=== PATIENT | female | born 1960 | race Caucasian/White ===

== ENCOUNTER → 2016-05-01 | Outpatient (REF) | payer OTHER ==
[~2016-05-01] MED LIST: /ESCI20TA PO; /MOXI40TA PO; /ONDA4TA OR; /PANT40TA PO; BISA10SU PR; BOTOX INJ; CETI10TA PO; CIPR500T89 PO; HYDROCODONE 7.5/500 OR; LORTTAB5 PO; MAXA5TAB10 OR; MYSO50TA PO; NORCOBULK PO; OMEP20CA3 OR; PRIL20CA PO; PROG100C PO; PSEU60TA PO; SIMV20TA2 PO; TYLE325T5 PO; VITAMIN D 2 OR; XANA0.5T PO; [UNRECOGNIZED DRUG - CODE] OR; [UNRECOGNIZED DRUG - CODE] PO; [UNRECOGNIZED DRUG - OTHER]; [UNRECOGNIZED DRUG - OTHER] OR; [UNRECOGNIZED DRUG - OTHER] OR
== END ==
LOC: M LAB REF 13:10
PROVIDERS: ATTEND Physician Assistant Medical
DX: Z12.4 Encounter for screening for malignant neoplasm of cervix (principal)

== ENCOUNTER → 2016-05-29 | Outpatient (REF) | payer OTHER ==
[2016-05-29 16:10] LABS: BASO % 0.5 % (0.0-1.0); EOS % 0.6 % (0.0-3.0); LARGE UNSTAINED CELL # 0.1 K/mm3 (0.0-0.4); LARGE UNSTAINED CELL % 1.5 % (0.0-4.0); LYMPH # 0.8 K/mm3 (1.5-4.5); LYMPH % 17.7 % (24.0-44.0); MEAN CORPUSCULAR HEMOGLOBIN 30.7 pg (27.0-33.0); MEAN CORPUSCULAR HGB CONC 33.8 g/dl (32.0-36.5); MEAN CORPUSCULAR VOLUME 90.9 fl (80.0-96.0); MONO # 0.3 K/mm3 (0.0-0.8); MONO % 6.9 % (0.0-5.0); NEUTROPHILS # 3.1 K/mm3 (1.8-7.7); NEUTROPHILS % 72.8 % (36.0-66.0); PLATELET COUNT, AUTOMATED 176 k/mm3 (150-450); WHITE BLOOD COUNT 4.2 K/mm3 (4.0-10.0)
[2016-05-29 16:44] LABS: ALBUMIN 3.8 GM/DL (3.2-5.2); ALBUMIN/GLOBULIN RATIO 1.52 (1.00-1.93); ALKALINE PHOSPHATASE 69 U/L (45-117); ALT/SGPT 75 U/L (12-78); ANION GAP 8 MEQ/L (8-16); AST/SGOT 46 U/L (15-37); BILIRUBIN,TOTAL 0.3 MG/DL (0.2-1.0); BLOOD UREA NITROGEN 16 MG/DL (7-18); CARBON DIOXIDE LEVEL 28 MEQ/L (21-32); CHLORIDE LEVEL 100 MEQ/L (98-107); CHOLESTEROL LEVEL 223 MG/DL (<200); CREATININE FOR GFR 0.93 MG/DL (0.55-1.02); FERRITIN 96 NG/ML (8-252); FREE T4 0.68 NG/DL (0.76-1.46); GLOMERULAR FILTRATION RATE > 60.0 (>51); GLUCOSE, FASTING 89 MG/DL (70-105); PERCENT SATURATION 40.1 % (13.2-37.4); POTASSIUM SERUM 4.8 MEQ/L (3.5-5.1); SODIUM LEVEL 136 MEQ/L (136-145); TOTAL IRON BINDING CAPACITY 237 UG/DL (250-450); TOTAL PROTEIN 6.3 GM/DL (6.4-8.2); TRIGLYCERIDES LEVEL 124 MG/DL (<150)
[2016-05-29 17:08] LABS: VITAMIN B12 LEVEL 909 PG/ML
[2016-05-29 17:09] LABS: FOLATE 10.8 NG/ML
[2016-05-31 12:07] LABS: PRETREATED FOLATE FOR RBCFOL 7.5 NG/ML
== END ==
LOC: M LABDRAW1 15:31
PROVIDERS: ATTEND Physician Assistant Medical
DX: E55.9 Vitamin D deficiency, unspecified (principal); R53.83 Other fatigue; Z98.84 Bariatric surgery status

== ENCOUNTER → 2016-10-10 | Outpatient (REF) | payer OTHER ==
[2016-10-10 18:29] LABS: FREE T4 0.69 NG/DL (0.76-1.46)
== END ==
LOC: M LABDRAW1 16:15
PROVIDERS: ATTEND Physician Assistant Medical
DX: E03.9 Hypothyroidism, unspecified (principal)

== ENCOUNTER → 2017-08-28 | Outpatient (REF) | payer OTHER ==
[2017-08-28 16:11] LABS: BASO % 0.2 % (0.0-1.0); EOS % 0.5 % (0.0-3.0); HEMATOCRIT 38.9 % (36.0-47.0); HEMOGLOBIN 12.9 g/dl (12.0-15.5); IMMATURE GRANULOCYTE % 0.2 % (0-3.0); LYMPH # 0.8 10^3/uL (1.5-4.5); LYMPH % 18.7 % (24.0-44.0); MEAN CORPUSCULAR HEMOGLOBIN 31.6 pg (27.0-33.0); MEAN CORPUSCULAR HGB CONC 33.2 g/dl (32.0-36.5); MEAN CORPUSCULAR VOLUME 95.3 fl (80.0-96.0); MONO # 0.4 10^3/uL (0.0-0.8); MONO % 9.2 % (0.0-5.0); NEUTROPHILS # 3.1 10^3/uL (1.8-7.7); NEUTROPHILS % 71.2 % (36.0-66.0); PLATELET COUNT, AUTOMATED 239 10^3/uL (150-450); RED BLOOD COUNT 4.08 10^6/uL (4.00-5.40); RED CELL DISTRIBUTION WIDTH 12.5 % (11.5-14.5); WHITE BLOOD COUNT 4.3 10^3/uL (4.0-10.0)
[2017-08-28 16:15] LABS: HEMATOCRIT 38.9 % (36.0-47.0)
[2017-08-28 16:21] LABS: TOTAL 25(OH) VITAMIN D 92.9 NG/ML (30.0-100.0)
[2017-08-28 16:22] LABS: FOLATE 19.7 NG/ML; VITAMIN B12 LEVEL 896 PG/ML
[2017-08-28 16:23] LABS: ALBUMIN 3.8 GM/DL (3.2-5.2); ALBUMIN/GLOBULIN RATIO 1.31 (1.00-1.93); ALKALINE PHOSPHATASE 73 U/L (45-117); ALT/SGPT 27 U/L (12-78); ANION GAP 9 MEQ/L (8-16); AST/SGOT 15 U/L (7-37); BILIRUBIN,TOTAL 0.4 MG/DL (0.2-1.0); BLOOD UREA NITROGEN 15 MG/DL (7-18); CALCIUM LEVEL 8.7 MG/DL (8.5-10.1); CARBON DIOXIDE LEVEL 25 MEQ/L (21-32); CHLORIDE LEVEL 100 MEQ/L (98-107); CHOLESTEROL LEVEL 242 MG/DL (<200); CHOLESTEROL RISK RATIO 2.781 (<5); CREATININE FOR GFR 1.09 MG/DL (0.55-1.30); FERRITIN 22 NG/ML (8-252); FREE T4 0.67 NG/DL (0.76-1.46); GLOMERULAR FILTRATION RATE 55.3 (>51); GLUCOSE, FASTING 117 MG/DL (70-100); HDL CHOLESTEROL 87 MG/DL (>40); IRON (FE) 116 UG/DL (50-170); NON-HDL-C 155 MG/DL; PERCENT SATURATION 40.7 % (13.2-45.0); SODIUM LEVEL 134 MEQ/L (136-145); TOTAL IRON BINDING CAPACITY 285 UG/DL (250-450); TOTAL PROTEIN 6.7 GM/DL (6.4-8.2); TRIGLYCERIDES LEVEL 165 MG/DL (<150)
[2017-08-29 12:54] LABS: PRETREATED FOLATE FOR RBCFOL 16.4 NG/ML; RBC FOLATE 885.3 NG/ML (280-791)
[2017-09-03 09:06] LABS: VITAMIN B1 LEVEL WHOLE BLOOD 134.9 nmol/L (66.5-200.0)
== END ==
LOC: M LAB REF 15:41
DX: Z98.84 Bariatric surgery status (principal)

== ENCOUNTER → 2019-02-11 | Outpatient (REF) | payer OTHER ==
[~2019-02-11] MED LIST changes: -/ESCI20TA PO; -/MOXI40TA PO; -/ONDA4TA OR; -/PANT40TA PO; +AVEL1TAB2 PO; +CATA0.1T PO; +CYMB60CA3 PO; +IBUP-1114 PO; +INDE1CAP6 PO; +LEXA1TAB2 PO; +MAXA10TA14 PO; +NP T30TA; +ONDA-1 OR; +OXYC1TAB23 PO; +PROT1TAB2 PO; +RISP1SS PO; +TIZA4CAP PO; +VITA50005; -[UNRECOGNIZED DRUG - CODE] PO
[2019-02-11 16:02] LABS: BASO % 0.3 % (0.0-1.0); EOS % 0.3 % (0.0-3.0); HEMATOCRIT 39.3 % (36.0-47.0); HEMOGLOBIN 12.9 g/dl (12.0-15.5); LYMPH # 0.8 10^3/uL (1.5-5.0); LYMPH % 12.5 % (24.0-44.0); MEAN CORPUSCULAR HEMOGLOBIN 36.5 pg (27.0-33.0); MEAN CORPUSCULAR HGB CONC 32.8 g/dl (32.0-36.5); MEAN CORPUSCULAR VOLUME 111.3 fl (80.0-96.0); MONO # 0.6 10^3/uL (0.0-0.8); MONO % 9.3 % (0.0-5.0); NEUTROPHILS # 5.1 10^3/uL (1.5-8.5); NEUTROPHILS % 77.1 % (36.0-66.0); PLATELET COUNT, AUTOMATED 182 10^3/uL (150-450); RED BLOOD COUNT 3.53 10^6/uL (4.00-5.40); WHITE BLOOD COUNT 6.7 10^3/uL (4.0-10.0)
[2019-02-11 16:17] LABS: ALBUMIN 3.3 GM/DL (3.2-5.2); BILIRUBIN,TOTAL 0.3 MG/DL (0.2-1.0); CALCIUM LEVEL 9.5 MG/DL (8.5-10.1); CREATININE FOR GFR 1.04 MG/DL (0.55-1.30); FREE T4 0.73 NG/DL (0.76-1.46); GLOMERULAR FILTRATION RATE 58.1 (>51); PERCENT SATURATION 26.8 % (13.2-45.0); POTASSIUM SERUM 3.7 MEQ/L (3.5-5.1); THYROID STIMULATING HORMONE 4.88 uIU/ML (0.358-3.740); TOTAL PROTEIN 6.4 GM/DL (6.4-8.2)
[2019-02-11 16:18] LABS: TOTAL 25(OH) VITAMIN D 36.6 NG/ML (30.0-100.0)
[2019-02-11 16:19] LABS: FOLATE 12.9 NG/ML
== END ==
LOC: M LABDRAW1 15:31
PROVIDERS: ATTEND Physician Assistant
DX: G25.0 Essential tremor (principal); E03.9 Hypothyroidism, unspecified; Z98.84 Bariatric surgery status

== ENCOUNTER 2019-03-01 12:47 | Inpatient (IN) | payer OTHER ==
[~2019-03-01] VITALS: Ht 157.5 cm; Wt 104.5 kg
[2019-03-01] MEDS ORDERED: NS 500 ML IV ONE (13:45)
[2019-03-01 13:52] LABS: BASO % 0.2 % (0.0-1.0); EOS # 0.1 10^3/uL (0.0-0.5); EOS % 0.3 % (0.0-3.0); HEMATOCRIT 38.2 % (36.0-47.0); HEMOGLOBIN 13.9 g/dl (12.0-15.5); LYMPH # 0.6 10^3/uL (1.5-5.0); LYMPH % 3.7 % (24.0-44.0); MEAN CORPUSCULAR HEMOGLOBIN 38.1 pg (27.0-33.0); MEAN CORPUSCULAR HGB CONC 36.4 g/dl (32.0-36.5); MEAN CORPUSCULAR VOLUME 104.7 fl (80.0-96.0); MONO # 1.4 10^3/uL (0.0-0.8); MONO % 8.3 % (0.0-5.0); NEUTROPHILS # 14.4 10^3/uL (1.5-8.5); PLATELET COUNT, AUTOMATED 351 10^3/uL (150-450); RED BLOOD COUNT 3.65 10^6/uL (4.00-5.40); WHITE BLOOD COUNT 16.5 10^3/uL (4.0-10.0)
[2019-03-01 14:16] LABS: HCG, SERUM QUALITATIVE NEGATIVE (NEGATIVE)
[2019-03-01 14:18] LABS: INFLUENZA A AMPLIFICATION NEGATIVE (NEGATIVE); INFLUENZA B AMPLIFICATION NEGATIVE (NEGATIVE)
--- NOTE | 2019-03-01 14:29 | REP ---
Chest AP and lateral views with the patient sitting: Comparison is 12/23/2012. There is an incomplete inspiratory effort. The visualized lung park are clear. The cardiac size is normal. The hector, mediastinum, skeletal structures are unremarkable. Impression: Incomplete inspiratory effort, otherwise, negative AP and lateral chest. Electronically Signed by Dylan Tate MD 03/01/2019 02:21 P
[2019-03-01 14:33] LABS: ALBUMIN 3.7 GM/DL (3.2-5.2); ALT/SGPT 30 U/L (12-78); BILIRUBIN,DIRECT 0.2 MG/DL (0.0-0.2); BILIRUBIN,TOTAL 0.5 MG/DL (0.2-1.0); BLOOD UREA NITROGEN 11 MG/DL (7-18); CALCIUM LEVEL 10.1 MG/DL (8.5-10.1); CARBON DIOXIDE LEVEL 17 MEQ/L (21-32); CHLORIDE LEVEL 94 MEQ/L (98-107); CPK CREATINE PHOSPHOKINASE 2055 U/L (26-192); CREATININE FOR GFR 1.33 MG/DL (0.55-1.30); ETHYL ALCOHOL (ETHANOL) < 0.003 % (0.000-0.010); GLOMERULAR FILTRATION RATE 43.8 (>51); GLUCOSE, FASTING 141 MG/DL (70-100); POTASSIUM SERUM 4.1 MEQ/L (3.5-5.1); SALICYLATE LEVEL < 1.7 MG/DL (5.0-30.0); SODIUM LEVEL 127 MEQ/L (136-145); TOTAL PROTEIN 6.8 GM/DL (6.4-8.2)
--- NOTE | 2019-03-01 14:36 | REP ---
CT brain without contrast: History: Trauma. Comparison CT study September 02, 2015. Findings: Digital preliminary clothes presser radiographs are unremarkable. The bony calvarium is intact. Vascular calcification is noted in the internal carotid arteries bilaterally. There is a radiopaque band around the ocular globe on the left unchanged. Lateral, third, and fourth ventricles are normal in size and position. Erazo-white differentiation pattern is intact. There is no evidence of intracranial hemorrhage. No infarct, mass, extra-axial fluid collection, or midline shift is seen. No change from comparison study. Impression: Vascular calcification. No acute intracranial abnormality. Electronically Signed by Harshal Zuniga MD 03/01/2019 07:50 P
--- NOTE | 2019-03-01 14:37 | REP ---
CT study of the cervical spine without contrast: History: Trauma. Technique: Helical scanning is acquired and overlapping 2 mm high resolution axial images were generated and reviewed at bone and soft tissue window settings. Coronal and sagittal multiplanar re-formations images are generated. CT findings: There is no evidence of cervical spine element fracture. No skull base fracture is seen. Cervical vertebral body heights are preserved. Alignment is normal. Facet joints are normally aligned bilaterally at each cervical level on multiplanar re-formations images. There is no evidence of intraspinal or paraspinal hematoma. No extra vertebral abnormality is seen. There are fairly advanced degenerative disc and osteoarthritic facet changes diffusely in the cervical spine. There is multilevel neural foraminal narrowing. There is some straightening. Impression: Degenerative spondylosis changes moderate and diffuse. No significant change from September 02, 2015. Otherwise negative CT study of the cervical spine without contrast. No fracture seen. Electronically Signed by Harshal Zuniga MD 03/01/2019 07:50 P
[2019-03-01] MEDS ORDERED: DULO-34 PO (15:04)
[2019-03-01] MEDS ORDERED: PRIM50TA6 PO (15:04)
[2019-03-01] MEDS ORDERED: NP T30TA PO (15:04)
[2019-03-01] MEDS ORDERED: VITA50005 PO (15:04)
[2019-03-01] MEDS ORDERED: CALC-263 PO (15:04)
[2019-03-01] MEDS ORDERED: RISP2TAB3 PO (15:04)
[2019-03-01] MEDS ORDERED: OMEP-218 PO (15:04)
[2019-03-01] MEDS ORDERED: RIZA10TA2 PO (15:04)
[2019-03-01] MEDS ORDERED: MECL1TAB31 PO (15:04)
[2019-03-01] MEDS ORDERED: NP T15TA PO (15:04)
[2019-03-01] MEDS ORDERED: CLON1TAB8 PO (15:04)
[2019-03-01] MEDS: NS 1,000 ML IV SCH ×2 (15:20→22:07)
[2019-03-01 16:18] LABS: AMPHETAMINES LEVEL URINE NEGATIVE (NEGATIVE); BARBITURATES URINE POSITIVE (NEGATIVE); BENZODIAZEPINES URINE POSITIVE (NEGATIVE); CANNABINOIDS URINE NEGATIVE (NEGATIVE); COCAINE METABOLITE URINE NEGATIVE (NEGATIVE); METHADONE URINE NEGATIVE (NEGATIVE); OPIATES URINE NEGATIVE (NEGATIVE); PHENCYCLIDINE URINE NEGATIVE (NEGATIVE)
[2019-03-01] MEDS ORDERED: cefTRIAXone SOD 1 GM in D5W MINI-BAG PLUS 50 ML IV ONE (16:30)
[2019-03-01] MEDS ORDERED: MECLIZINE 25 MG TABLET PO PRN (18:15)
--- NOTE | 2019-03-01 18:15 | HPEPDOC ---
[facility] Medical History & Physical Date of Admission Mar 01, 2019 Date of Service: Mar 01, 2019 History and Physical CHIEF COMPLAINT: AMS HISTORY OF PRESENT ILLNESS: Patient is 58F with PMH recurrent UTIs, Anxiety/depression, resting tremor, Migraine, HTN brought in by family for worsening weakness and recurrent falls. Reported that patient has been unsteady for the past few months and appear to have worsened with progressive weakness. She was reportedly supposed to be going to see a neurologist for worsen tremors and unsteady gait but has not started doing that yet. In ER, patient was AAOX3 but does have difficulty remembering and expressing some thoughts and appear to be tremulous, although reportedly is normal for her. She stated that her legs are weak as well as having chronic back pain but otherwise denies any other symptoms including chest pain, SOB, fever, chills, nausea, vomiting, dizziness, visual changes. She reportedly has been taking excessive NiQuil to have help with sleep. Reportedly about 2 bottles/day? Patient was found to have elevated CK, Utox + benzos and barbituates, and UA suggestive of UTI. PAST MEDICAL HISTORY: Refer to [facility] PAST SURGICAL HISTORY: Gastric bypass Hysterectomy Cholecystectomy carpal tunnel surgery SOCIAL HISTORY: Denies tobacco, alcohol or illicit drug use. FAMILY HISTORY: Mother- kidney cancer Father- COPD ALLERGIES: Please see below. REVIEW OF SYSTEMS: 10 point review of system negative except as stated in [facility] HOME MEDICATIONS: Please see below. PHYSICAL EXAMINATION: General: tremulous, slow in speech and mentation but follows commands fully Eyes: Normal sclera, EOMI HENT: Atraumatic Cardiovascular: Normal rate Pulmonary: Clear to auscultation b/l, no wheezing GI: Soft, nontender, nondistended Skin: Warm and dry Neuro: CN grossly intact. Generalized weakness worse in LE extremities equally. 4/5 in b/l UE. 1-2/5 in b/l LE. Sensations intact throughout. Psych: oriented x 3 LABORATORY DATA: See below. IMAGING: Head CT- Vascular calcification. No acute intracranial abnormality. CXR- Incomplete inspiratory effort, otherwise, negative AP and lateral chest. Cervical spine CT- Degenerative spondylosis changes moderate and diffuse. No significant change from September 02, 2015. Otherwise negative CT study of the cervical spine without contrast. No fracture seen. MICROBIOLOGY: Please see below. ASSESSMENT AND PLAN: 1. AMS/LE weakness - Likely multifactorial including: UTI vs. worsening of tremors/parkinson/neurological disorder vs. excess drug intake Niquil - Utox + barbituates and benzos. - Treat for UTI. c/w PT and OT. - CT head negative for acute intracranial abnormalities. - consider neurology consultation if does not improve after UTI treatment. 2. UTI - c/w Rocephin. - f/u Urine culture and de-escalate antibiotics as needed. - hx recurrent UTI's. Used to be on chronic antibiotics but had stopped for a period of time as she has not had it again in awhile. 3. Anxiety/Depression - resume home meds. 4. HTN? - BP controlled. No medication listed. - Will watch for now. 5. Hypothyroid - resume home med DVT ppx: Lovenox Code status: Full code Vital Signs Vital Signs Date Time Temp Pulse Resp B/P (MAP) Pulse Ox O2 Delivery O2 Flow Rate FiO2 03/01/19 17:01 107 98 Room Air 03/01/19 16:16 20 117/56 (76) 03/01/19 13:42 98.1 Laboratory Data Labs 24H Laboratory Tests 2 03/01/19 13:15: Bedside Glucose (Misc Panel) 165H 03/01/19 13:32: Immature Granulocyte % (Auto) 0.5, Neutrophils (%) (Auto) 87.0H, Lymphocytes (%) (Auto) 3.7L, Monocytes (%) (Auto) 8.3H, Eosinophils (%) (Auto) 0.3, Basophils (%) (Auto) 0.2, Neutrophils # (Auto) 14.4H, Lymphocytes # (Auto) 0.6L, Monocytes # (Auto) 1.4H, Eosinophils # (Auto) 0.1, Basophils # (Auto) 0.0, Nucleated Red Blood Cells % (auto) 0.0, Anion Gap 16, Glomerular Filtration Rate 43.8L, Calcium Level 10.1, Total Bilirubin 0.5, Direct Bilirubin 0.2, Aspartate Amino Transf (AST/SGOT) 50H, Alanine Aminotransferase (ALT/SGPT) 30, Alkaline Phosphatase 87, Total Creatine Kinase 2055H, Total Protein 6.8, Albumin 3.7, Albumin/Globulin Ratio 1.19, Thyroid Stimulating Hormone (TSH) 1.330, Human Chorionic Gonadotropin, Qual NEGATIVE, Salicylates Level < 1.7L, Acetaminophen Level 2.0L, Ethyl Alcohol Level < 0.003, Influenza Type A (RT-PCR) NEGATIVE, Influenza Type B (RT-PCR) NEGATIVE 03/01/19 14:38: Urine Color YELLOW, Urine Appearance HAZY, Urine pH 5.0, Urine Specific [place] 1.008, Urine Protein NEGATIVE, Urine Glucose (UA) NEGATIVE, Urine Ketones TRACEH, Urine Blood 3+H, Urine Nitrite POSITIVEH, Urine Bilirubin NEGATIVE, Urine Urobilinogen 0.2, Urine Leukocyte Esterase NEGATIVE, Urine WBC (Auto) 2, Urine RBC (Auto) 2, Urine Hyaline Casts (Auto) 0, Urine Bacteria (Auto) 2+H, Urine Squamous Epithelial Cells 1, Urine Mucus (Auto) SMALL, Urine Sperm (Auto) , Urine Opiates Screen NEGATIVE, Urine Methadone Screen NEGATIVE, Urine Barbiturates Screen POSITIVEH, Urine Phencyclidine Screen NEGATIVE, Urine Amphetamines Screen NEGATIVE, Urine Benzodiazepines Screen POSITIVEH, Urine Cocaine Metabolite Screen NEGATIVE, Urine Cannabinoids Screen NEGATIVE CBC/BMP Laboratory Tests 03/01/19 13:32 Microbiology Microbiology 03/01/19 Urine Culture, Received Pending Home Medications Scheduled Calcium Carb/Vitamin D3/Vit K1 (Citracal Soft Chew) 1 Each Tab.chew, 2 EACH PO BID Duloxetine HCl (Duloxetine HCl) 40 Mg Capsule.dr, 80 MG PO BID Ergocalciferol (Vitamin D2) (Vitamin D2) 50,000 Units Cap, 50,000 UNIT PO QWEEK SATURDAYS Omeprazole (Omeprazole) 20 Mg Capsule.dr, 20 MG PO DAILY Primidone (Primidone) 50 Mg Tablet, 200 MG PO BID Risperidone (Risperidone) 2 Mg Tablet, 3 MG PO BID Thyroid,Pork (Radiology Technologist Thyroid) 15 Mg Tablet, 15 MG PO DAILY TAKE WITH 30MG TAB FOR TOTAL OF 45MG DAILY Thyroid,Pork (Radiology Technologist Thyroid) 30 Mg Tablet, 30 MG PO DAILY TAKE WITH 15MG TAB FOR TOTAL DOSE OF 45MG DAILY Scheduled PRN Clonazepam (Clonazepam) 1 Mg Tablet, 1 MG PO TID PRN for ANXIETY MAY TAKE TWO TABS IF NEEDED Meclizine HCl (Meclizine HCl) 25 Mg Tablet, 25 MG PO Q8H PRN for DIZZINESS TAKES 1/2 TO 1 TAB IF NEEDED Rizatriptan Benzoate (Rizatriptan) 10 Mg Tablet, 10 MG PO BID PRN for HEADACHE Allergies Coded Allergies: No Known Allergies (Unverified , 09/15/17) A-FIB/CHADSVASC A-FIB History Current/History of A-Fib/PAF?: No KANDY VIZCARRA MD Mar 01, 2019 18:15
[2019-03-01] MEDS ORDERED: PILL CUTTER 1 EACH XX PRN (18:45)
[2019-03-01 20:00] VITALS: BP 121/56
[2019-03-01] MEDS: traMADol 50 MG TAB PO PRN (20:25)
[2019-03-01] MEDS: risperiDONE 2 MG TAB PO SCH (22:06)
[2019-03-01] MEDS: PRIMIDONE 50 MG TAB PO SCH (22:07)
[2019-03-01] MEDS: DULoxetine 20 MG CAP (CYMBALTA) PO SCH (22:07)
[2019-03-02] MEDS: clonazePAM 1 MG TAB PO PRN (00:14)
[2019-03-02] MEDS: traMADol 50 MG TAB PO PRN ×3 (06:43→18:54)
[2019-03-02 06:51] VITALS: BP 109/58
[2019-03-02 07:18] LABS: HEMATOCRIT 34.4 % (36.0-47.0); MEAN CORPUSCULAR VOLUME 108.9 fl (80.0-96.0); RED BLOOD COUNT 3.16 10^6/uL (4.00-5.40); WHITE BLOOD COUNT 7.3 10^3/uL (4.0-10.0)
[2019-03-02 07:21] LABS: HEMOGLOBIN 11.7 g/dl (12.0-15.5)
[2019-03-02 07:22] LABS: PLATELET COUNT, AUTOMATED 193 10^3/uL (150-450)
[2019-03-02 07:51] LABS: BLOOD UREA NITROGEN 10 MG/DL (7-18); CALCIUM LEVEL 8.2 MG/DL (8.5-10.1); CARBON DIOXIDE LEVEL 20 MEQ/L (21-32); CHLORIDE LEVEL 105 MEQ/L (98-107); CREATININE FOR GFR 0.93 MG/DL (0.55-1.30); GLOMERULAR FILTRATION RATE > 60.0 (>51); GLUCOSE, FASTING 81 MG/DL (70-100); POTASSIUM SERUM 3.2 MEQ/L (3.5-5.1); SODIUM LEVEL 136 MEQ/L (136-145)
[2019-03-02] MEDS: PRIMIDONE 50 MG TAB PO SCH ×2 (08:23→20:07)
[2019-03-02] MEDS: OMEPRAZOLE 20 MG CAP PO SCH (08:23)
[2019-03-02] MEDS: DULoxetine 20 MG CAP (CYMBALTA) PO SCH ×2 (08:23→20:06)
[2019-03-02] MEDS: risperiDONE 2 MG TAB PO SCH (08:23)
[2019-03-02] MEDS: ENOXAPARIN 40 MG/0.4 ML SYRINGE (J1650) SC SCH (08:24)
[2019-03-02] MEDS: THYROID 30 MG TAB PO SCH (08:24)
[2019-03-02] MEDS ORDERED: THYROID 30 MG TAB PO SCH (09:00)
[2019-03-02] MEDS: NS 1,000 ML IV SCH (09:11)
[2019-03-02 10:05] VITALS: BP 150/54
[2019-03-02 14:00] VITALS: BP 113/60
[2019-03-02] MEDS ORDERED: POTASSIUM CHLORIDE 10 MEQ SR TABLET PO ONE (14:00)
--- NOTE | 2019-03-02 15:47 | IPNPDOC ---
Text Note Date of Service The patient was seen on 03/02/19. NOTE SUBJECTIVE: Feels very weak and says her speech is different. No fever or chi lls, no dysuria no frequency of urination. Denies any chest pain. But does say gets easily winded. PHYSICAL EXAMINATION: General: tremulous, slow in speech and mentation but follows commands fully, flat affect, some release reflexes. Eyes: Normal sclera, EOMI HENT: Atraumatic Cardiovascular: Normal rate Pulmonary: Clear to auscultation b/l, no wheezing GI: Soft, nontender, nondistended Skin: Warm and dry Neuro: CN grossly intact. Generalized weakness worse in LE extremities equally. 4/5 in b/l UE. 1-2/5 in b/l LE. Sensations intact throughout. Psych: oriented x 3 LABORATORY DATA: See below. IMAGING: Head CT- Vascular calcification. No acute intracranial abnormality. CXR- Incomplete inspiratory effort, otherwise, negative AP and lateral chest. Cervical spine CT- Degenerative spondylosis changes moderate and diffuse. No significant change from September 02, 2015. Otherwise negative CT study of the cervical spine without contrast. No fracture seen. MICROBIOLOGY: Please see below. ASSESSMENT AND PLAN: Patient is 58F with PMH gastric bypass surgery, recurrent UTIs, Anxiety/depression, Essential tremors , Migraine, HTN headaches, dizziness used to get botox injections brought in by family for worsening weakness and recurrent falls. Worsening over the past one year all well as change in speech, disbalance and difficulty in ambulation. Reported that patient has been unsteady for the past few months and appear to have worsened with progressive weakness. She also says that she has difficulty in remembering things. This time she came in after a fall. She reportedly has been taking excessive NiQuil to have help with sleep. Reportedly about 2 bottles/day? Weakness and falls. no focal deficits worsening of tremors/parkinson/neurological disorder will consult neurology Dr SAEED. SHe had seen Dr Saeed 6 years ago. PT and OT Encephalopathy with Possible? mild cognitive impairment could be due to medications, she is on benzos, takes nyquil. now seems to have resolved. UTI I do not htink she has UTI . there are only 2 cells in the UA will stop ceftriaxone Lasix prn for fluid overload. Anxiety/Depression resume home meds. On clozazepam, resperidone, cymbalta H/o HTN BP controlled without any meds. Hypothyroid resume home med Migraine continue home meds Vertigo on meclizine DVT ppx: Lovenox Code status: Full code VS,Fishbone, I+O VS, Fishbone, I+O Laboratory Tests 03/02/19 06:56 Vital Signs Date Time Temp Pulse Resp B/P (MAP) Pulse Ox O2 Delivery O2 Flow Rate FiO2 03/02/19 14:00 98.0 92 18 113/60 (77) 97 Room Air I&O- Last 24 Hours up to 6 AM 03/02/19 06:00 Intake Total 600 ml Output Total 850 ml Balance -250 ml SHAVONNE GARDINER MD Mar 02, 2019 15:47
[2019-03-02] MEDS ORDERED: cefTRIAXone SOD 1 GM in D5W MINI-BAG PLUS 50 ML IV SCH (16:00)
[2019-03-02 20:00] VITALS: BP 102/56
[2019-03-02] MEDS: risperiDONE 3 MG TAB PO SCH (20:06)
--- NOTE | 2019-03-02 20:31 | ECGEPIP ---
[facility] - ED Test Date: 2019-03-01 Pat Name: ORTEGA AVENDAÑO Department: Room: - Gender: Female Alternative Medicine Practitioner: sonu : 1960 Requested By: Eddie Canada Order Number: [id number] Reading MD: Eddie Thornton Measurements Intervals [place] Rate: 127 P: 58 LA: 121 QRS: 24 QRSD: 86 T: 3 QT: 288 QTc: 419 Interpretive Statements SINUS TACHYCARDIA BASELINE ARTIFACT AFFECTS INTERPRETATION Electronically Signed on 03-02-2019 20:31:17 EST by Eddie Thornton
--- NOTE | 2019-03-02 22:56 | REPVR ---
PROCEDURE INFORMATION: Exam: MR Thoracic Spine Without Contrast Exam date and time: 03/02/2019 10:42 PM Age: 58 years old Clinical indication: Weakness; Additional info: Gait difficulty and ataxia TECHNIQUE: Imaging protocol: Multiplanar magnetic resonance images of the thoracic spine without intravenous contrast. COMPARISON: No relevant prior studies available. FINDINGS: Vertebrae: Degenerative spondylosis in the cervical spine. Discogenic and endplate degenerative changes. No fracture or malalignment. Spinal cord: Multiple short-segment longitudinal foci of abnormal T2 hyperintense cord signal are seen from T6 to T8 and also at T10-11, best appreciated on the sagittal STIR sequence. No mass, syrinx, or myelomalacia. T1-T2: Disc desiccation with small posterior disc bulge causing mild spinal stenosis. T2-T3: Disc desiccation with small posterior disc bulge causing mild spinal stenosis. T3-T4: No significant disc disease. No significant spinal stenosis. T4-T5: Disc degeneration with small posterior disc bulge. T5-T6: Disc degeneration with small posterior disc bulge. T6-T7: Disc degeneration with small posterior disc bulge. T7-T8: Mild disc degeneration without spinal stenosis. T8-T9: Disc degeneration with small left parasagittal disc bulge. No cord compression. T9-T10: Disc desiccation with small posterior disc bulge causing mild spinal stenosis. T10-T11: Disc degeneration with small posterior disc bulge. T11-T12: No significant disc disease. No significant spinal stenosis. Soft tissues: Unremarkable. Other findings: The exam is degraded by patient motion artifact. IMPRESSION: 1. Several foci of abnormal cord signal is concerning for demyelination such as multiple sclerosis. Other etiologies such as transverse myelitis or neoplasm are less likely. Consider follow-up contrast-enhanced spinal MRI and imaging of the remainder of the neuraxis. 2. Degenerative spondylosis as above. Electronically signed by: Vinh Fraser On 03/02/2019 22:55:49 PM
--- NOTE | 2019-03-02 23:01 | REPVR ---
PROCEDURE INFORMATION: Exam: MR Lumbar Spine Without Contrast. Exam date and time: 03/02/2019 10:42 PM Age: 58 years old Clinical indication: Lumbago and weakness; Additional info: Gait difficulty and ataxia TECHNIQUE: Imaging protocol: Multiplanar magnetic resonance images of the lumbar spine without intravenous contrast. COMPARISON: No relevant prior studies available. FINDINGS: Vertebrae: Grade 1 retrolisthesis throughout the lumbar spine. No compression fracture. Multilevel endplate degenerative changes. Incidental hemangioma in the L1 vertebral body. Spinal cord: Conus medullaris terminates in normal position at T12-L1 and is unremarkable. L1-L2: Disc degeneration with loss of disc height. Facet DJD and hypertrophy. No disc herniation or spinal stenosis. Mild bilateral foraminal stenosis. L2-L3: Disc degeneration with loss of disc height along with facet DJD and hypertrophy causing moderate central spinal canal stenosis with mass effect on the thecal sac. Severe right foraminal stenosis and mild left foraminal stenosis. L3-L4: Disc degeneration with loss of disc height along with facet DJD and hypertrophy causing severe central spinal canal stenosis with mass effect on the thecal sac. L4-L5: Disc degeneration with loss of disc height and broad-based posterior disc bulge causing moderate central spinal canal stenosis and lateral recess narrowing. Facet DJD and hypertrophy with moderate to severe foraminal stenosis, worse on the left. L5-S1: Disc degeneration with loss of disc height and broad-based posterior disc bulge with facet DJD and hypertrophy causing left greater than right lateral recess stenosis and mild central spinal stenosis. Severe bilateral foraminal stenosis with exiting nerve root compression. Soft tissues: Unremarkable. IMPRESSION: 1. Advanced degenerative spondylosis as above with moderate to severe multilevel central spinal canal stenosis. 2. Multilevel bilateral foraminal stenoses. Electronically signed by: Vinh Fraser On 03/02/2019 23:01:06 PM
[2019-03-02] MEDS: RIZATRIPTAN BENZOATE 10 MG TAB PO PRN (23:11)
[2019-03-03 06:00] VITALS: BP 123/66
[2019-03-03 06:56] LABS: HEMATOCRIT 31.1 % (36.0-47.0); HEMOGLOBIN 10.4 g/dl (12.0-15.5); MEAN CORPUSCULAR HEMOGLOBIN 37.4 pg (27.0-33.0); MEAN CORPUSCULAR HGB CONC 33.4 g/dl (32.0-36.5); MEAN CORPUSCULAR VOLUME 111.9 fl (80.0-96.0); PLATELET COUNT, AUTOMATED 165 10^3/uL (150-450); RED BLOOD COUNT 2.78 10^6/uL (4.00-5.40); WHITE BLOOD COUNT 5.7 10^3/uL (4.0-10.0)
--- NOTE | 2019-03-03 07:03 | CR ---
DATE OF CONSULTATION: 03/02/2019 REFERRING PHYSICIAN: Dr. Samina Sharma REASON FOR CONSULTATION: Difficulty walking. HISTORY OF PRESENT ILLNESS: Jossy Michel is a 58-year-old woman with history of tremor for 10 years. Her tremor has been getting worse over the last 1 year. The patient has noted increased difficulty with balance and unsteadiness while walking over the last couple of weeks. Her problems have been particularly worse over last 1 week and she has fallen four times. She was able to walk independently before. Her had to get a walker, but the patient did not use it and fell several times and ended up in the hospital. She ran out of her clonazepam for 10 days around 2018. She denies any other changes in her medications. She denies any other illness. She has history of chronic neck and back pain. Her neck and back pain are 6/10 in intensity. She feels weakness in her legs. She denies any numbness or tingling in her legs. She denies urinary incontinence or loss of consciousness. She feels her memory is terrible. She forgets everything. She briefly saw us in 2012 for her migraines and vertigo, but did not want to take any medications. She was getting Botox at that time and planned to continue Botox, but later stopped getting Botox as well. She currently denies any dizziness or vertigo. She feels off balance. DIAGNOSTIC STUDIES: CT scan of head showed vascular calcifications without acute disease. CT scan of cervical spine showed degenerative disk disease and mild spondylosis which was stable compared to her scan in 2016. CK was 2055 with urine toxicology screen showing positive barbiturates and benzodiazepines. Serum sodium was 136 and hemoglobin was 11.7. PAST MEDICAL HISTORY: Anxiety, depression, tremor, migraines, hypertension, gastric bypass, hysterectomy, cholecystectomy, carpal tunnel surgery. SOCIAL HISTORY: She denies smoking, alcohol or illicit drugs. FAMILY HISTORY: Father had chronic obstructive pulmonary disease (COPD) and mother had kidney cancer. REVIEW OF SYSTEMS: All systems were reviewed and found to be noncontributory except as mentioned in history of present illness. 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 ALLERGIES: None. PHYSICAL EXAMINATION: Temperature 98, pulse 92, respiratory rate 18, blood pressure 113/60, 97% saturation on room air. Heart: Regular rate and rhythm. Lungs: Clear to auscultation. Abdomen: Soft, nontender, nondistended. No pedal edema. No musculoskeletal abnormalities. No rash. No signs of meningeal irritation. The patient is awake, alert, oriented to month, year, name of president, city, state, country, and the name of hospital. She was unable to tell me exact date. She was able to tell me the day of week. Speech is normal with normal comprehension, repetition and expression. Extraocular muscles are intact. No facial weakness. Tongue and uvula are midline. Visual park are full to confrontation. There is no nystagmus. 5/5 strength in both arms. Strength in her left hip flexor is 2/5 and right hip flexor 3/5. Bilateral quadriceps strength was 4+/5. Tibialis anterior and gastrocnemius muscles were 5-/5. Deep tendon flexes were 2+ in arms, trace at knees and absent at ankles. Her gait is unsteady. She used a walker and needed assistance while getting out of bed and walking. Her gait was mildly shuffling. Normal sensation throughout. No dysmetria. [place]-in-ahxl testing is normal. ASSESSMENT: 1. Multifactorial gait difficulty. 2. Rule out transverse myelitis and lumbosacral spinal stenosis. 3. Neuroleptic/risperidone induced Parkinsonism. 4. Chronic neck and back. 5. Chronic migraines. 6. Urinary tract infection. PLAN: 1. MRI lumbosacral and thoracic spine. 2. Check vitamin B12, vitamin B1, serum copper, etc. 3. The patient is being treated for urinary tract infection. 4. Physical and occupational therapy and further treatment after above studies are available. 5. Follow with our office in 2-4 weeks after hospital discharge and rehabilitation.
[2019-03-03 07:24] LABS: BLOOD UREA NITROGEN 10 MG/DL (7-18); CALCIUM LEVEL 8.6 MG/DL (8.5-10.1); CARBON DIOXIDE LEVEL 20 MEQ/L (21-32); CHLORIDE LEVEL 108 MEQ/L (98-107); CREATININE FOR GFR 0.72 MG/DL (0.55-1.30); GLOMERULAR FILTRATION RATE > 60.0 (>51); GLUCOSE, FASTING 99 MG/DL (70-100); POTASSIUM SERUM 3.7 MEQ/L (3.5-5.1); SODIUM LEVEL 137 MEQ/L (136-145)
[2019-03-03 07:27] LABS: TOTAL PROTEIN 5.2 GM/DL (6.4-8.2)
[2019-03-03] MEDS: ENOXAPARIN 40 MG/0.4 ML SYRINGE (J1650) SC SCH (09:37)
[2019-03-03] MEDS: THYROID 30 MG TAB PO SCH (09:37)
[2019-03-03] MEDS: risperiDONE 3 MG TAB PO SCH ×2 (09:38→21:05)
[2019-03-03] MEDS: methylPREDNISolone 1,000 MG, VIAL MATE ADAPTER 1 EACH in D5W 250 ML IV SCH (09:39)
[2019-03-03] MEDS: OMEPRAZOLE 20 MG CAP PO SCH (09:39)
[2019-03-03] MEDS: PRIMIDONE 50 MG TAB PO SCH ×2 (09:39→21:04)
[2019-03-03] MEDS: DULoxetine 20 MG CAP (CYMBALTA) PO SCH ×2 (09:39→21:04)
[2019-03-03 10:36] LABS: VITAMIN B12 LEVEL 1983 PG/ML (247-911)
[2019-03-03] MEDS ORDERED: PROHANCE 279.3MG/ML 15ML VIAL (A9576) As Ordered ONE (12:14)
[2019-03-03] MEDS ORDERED: PROHANCE 279.3MG/ML 5ML VIAL (A9576) As Ordered ONE (12:14)
--- NOTE | 2019-03-03 12:28 | IPNPDOC ---
Text Note Date of Service The patient was seen on 03/03/19. NOTE SUBJECTIVE: No new complaints this morning. getting solumedrol. Weakness and speech problem unchanged. PHYSICAL EXAMINATION: General: tremulous, slow in speech and mentation but follows commands fully, flat affect, some release reflexes. Eyes: Normal sclera, EOMI, no nystagmus. HENT: Atraumatic Cardiovascular: Normal rate Pulmonary: Clear to auscultation b/l, no wheezing GI: Soft, nontender, nondistended Skin: Warm and dry Neuro: CN grossly intact. Generalized weakness worse in LE extremities equally. 5/5 in b/l UE. 4/5 in b/l LE. Sensations intact throughout. DTRs are decreased in the lower extremities. Psych: oriented x 3 LABORATORY DATA: See below. IMAGING: Head CT- Vascular calcification. No acute intracranial abnormality. CXR- Incomplete inspiratory effort, otherwise, negative AP and lateral chest. Cervical spine CT- Degenerative spondylosis changes moderate and diffuse. No significant change from September 02, 2015. Otherwise negative CT study of the cervical spine without contrast. No fracture seen. MRI Thoracic Several foci of abnormal cord signal is concerning for demyelination such as multiple sclerosis. Other etiologies such as transverse myelitis or neoplasm are less likely MRi lumber 1. Advanced degenerative spondylosis as above with moderate to severe multilevel central spinal canal stenosis. 2. Multilevel bilateral foraminal stenoses. MICROBIOLOGY: Please see below. ASSESSMENT AND PLAN: Patient is 58F with PMH gastric bypass surgery, recurrent UTIs, Anxiety/depression, Essential tremors , Migraine, HTN headaches, dizziness used to get botox injections brought in by family for worsening weakness and recurrent falls. Worsening over the past one year all well as change in speech, disbalance and difficulty in ambulation. Reported that patient has been unsteady for the past few months and appear to have worsened with progressive weakness. She also says that she has difficulty in remembering things. This time she came in after a fall. She reportedly has been taking excessive NiQuil to have help with sleep. Reportedly about 2 bottles/day? Her symptoms acutely worsened in the past week and she fell 4 times . Weakness and falls. no focal deficits worsening of tremors/parkinson/neurological disorder will consult neurology Dr SAEED. SHe had seen Dr Saeed 6 years ago. As per neuro consult. 1. Multifactorial gait difficulty. 2. Rule out transverse myelitis and lumbosacral spinal stenosis. 3. Neuroleptic/risperidone induced Parkinsonism. PT and OT Awaiting MRi with contrast Discussed with Dr SAEED as per him patient is having transversemyelitis getting solumedrol. Encephalopathy with Possible? mild cognitive impairment could be due to medications, she is on benzos, takes nyquil. now seems to have resolved. UTI I do not think she has UTI . there are only 2 cells in the UA will stop ceftriaxone Lasix prn for fluid overload. Anxiety/Depression resume home meds. On clozazepam, resperidone, cymbalta H/o HTN BP controlled without any meds. Hypothyroid resume home med Chronic Migraine continue home meds Vertigo on meclizine DVT ppx: Lovenox Code status: Full code VS,Fishbone, I+O VS, Fishbone, I+O Laboratory Tests 03/03/19 06:42 Vital Signs Date Time Temp Pulse Resp B/P (MAP) Pulse Ox O2 Delivery O2 Flow Rate FiO2 03/03/19 06:00 97.5 103 18 123/66 (85) 98 Room Air I&O- Last 24 Hours up to 6 AM 03/03/19 06:00 Intake Total 910 ml Balance 910 ml SHAVONNE GARDINER MD Mar 03, 2019 12:28
--- NOTE | 2019-03-03 13:37 | REP ---
MRI thoracic spine with IV contrast: History: Transverse myelitis. Comparison is made with MRI thoracic spine study done without contrast on March 02, 2019. Technique: 20 mL of intravenous ProHance is administered. Axial and sagittal T1 images are acquired. MRI findings: There is no abnormal intramedullary gadolinium enhancement in the thoracic spinal cord. The thoracic cord is normal in coarse, caliber, and signal intensity on T1-weighted scans post contrast. No abnormal paravertebral soft tissue or intravertebral bony enhancement is appreciated. Impression: No abnormal intramedullary contrast enhancement. Electronically Signed by Harshal Zuniga MD 03/03/2019 07:03 P
[2019-03-03 14:00] VITALS: BP 128/69
[2019-03-03] MEDS ORDERED: LevoFLOXacin 500 MG TABLET PO ONE (18:30)
[2019-03-03] MEDS: clonazePAM 1 MG TAB PO PRN (21:04)
[2019-03-03] MEDS: RIZATRIPTAN BENZOATE 10 MG TAB PO PRN (21:04)
[2019-03-03 22:00] VITALS: BP 125/77
[2019-03-04 06:00] VITALS: BP 120/66
[2019-03-04 07:55] LABS: HEMATOCRIT 32.1 % (36.0-47.0); HEMOGLOBIN 10.5 g/dl (12.0-15.5); MEAN CORPUSCULAR HEMOGLOBIN 36.8 pg (27.0-33.0); MEAN CORPUSCULAR HGB CONC 32.7 g/dl (32.0-36.5); MEAN CORPUSCULAR VOLUME 112.6 fl (80.0-96.0); PLATELET COUNT, AUTOMATED 173 10^3/uL (150-450); RED BLOOD COUNT 2.85 10^6/uL (4.00-5.40); WHITE BLOOD COUNT 6.3 10^3/uL (4.0-10.0)
[2019-03-04 08:00] VITALS: BP 119/61
[2019-03-04] MEDS: PRIMIDONE 50 MG TAB PO SCH ×2 (08:16→20:50)
[2019-03-04] MEDS: THYROID 30 MG TAB PO SCH (08:16)
[2019-03-04] MEDS: risperiDONE 3 MG TAB PO SCH ×2 (08:16→20:50)
[2019-03-04] MEDS: clonazePAM 1 MG TAB PO PRN ×2 (08:16→20:50)
[2019-03-04] MEDS: DULoxetine 20 MG CAP (CYMBALTA) PO SCH ×2 (08:17→20:50)
[2019-03-04] MEDS: OMEPRAZOLE 20 MG CAP PO SCH (08:17)
[2019-03-04] MEDS: ENOXAPARIN 40 MG/0.4 ML SYRINGE (J1650) SC SCH (08:17)
[2019-03-04 08:23] LABS: BLOOD UREA NITROGEN 7 MG/DL (7-18); CALCIUM LEVEL 8.3 MG/DL (8.5-10.1); CARBON DIOXIDE LEVEL 27 MEQ/L (21-32); CHLORIDE LEVEL 105 MEQ/L (98-107); CREATININE FOR GFR 0.63 MG/DL (0.55-1.30); GLOMERULAR FILTRATION RATE > 60.0 (>51); GLUCOSE, FASTING 144 MG/DL (70-100); POTASSIUM SERUM 3.6 MEQ/L (3.5-5.1); SODIUM LEVEL 140 MEQ/L (136-145)
[2019-03-04] MEDS: methylPREDNISolone 1,000 MG, VIAL MATE ADAPTER 1 EACH in D5W 250 ML IV SCH (08:44)
[2019-03-04] MEDS: traMADol 50 MG TAB PO PRN ×2 (10:26→20:51)
[2019-03-04 14:19] LABS: ALBUMIN 2.78 GM/DL (3.29-5.55); ALBUMIN % 53.5 % (55.8-66.1); ALPHA-1-GLOBULIN % 10.4 % (2.9-4.9); ALPHA-1-GLOBULINS 0.54 GM/DL (0.17-0.41); ALPHA-2-GLOBULINS 0.85 GM/DL (0.42-0.99); ALPHA-2-GLOBULINS % 16.4 % (7.1-11.8); BETA-1-GLOBULINS 0.27 GM/DL (0.28-0.60); BETA-1-GLOBULINS % 5.2 % (4.7-7.2); BETA-2-GLOBULINS 0.29 GM/DL (0.19-0.55); BETA-2-GLOBULINS % 5.5 % (3.2-6.5); GAMMA GLOBULINS 0.47 GM/DL (0.65-1.58)
[2019-03-04] MEDS ORDERED: KETOROLAC 30 MG/ML VIAL (J1885) IV ONE (17:45)
[2019-03-04 18:39] VITALS: BP 125/68
[2019-03-04] MEDS: RIZATRIPTAN BENZOATE 10 MG TAB PO PRN (21:24)
[2019-03-05 00:14] VITALS: BP 136/73
[2019-03-05] MEDS ORDERED: EXCEDRIN MIGRAINE TABLET PO PRN (01:15)
[2019-03-05] MEDS: RAMELTEON 8 MG TAB (ROZEREM) PO SCH ×2 (01:48→20:08)
[2019-03-05 07:15] LABS: HEMATOCRIT 29.1 % (36.0-47.0); HEMOGLOBIN 9.6 g/dl (12.0-15.5); MEAN CORPUSCULAR HEMOGLOBIN 37.6 pg (27.0-33.0); PLATELET COUNT, AUTOMATED 157 10^3/uL (150-450); RED BLOOD COUNT 2.55 10^6/uL (4.00-5.40)
[2019-03-05 07:20] LABS: MEAN CORPUSCULAR VOLUME 114.1 fl (80.0-96.0)
[2019-03-05 07:51] LABS: BLOOD UREA NITROGEN 12 MG/DL (7-18); CALCIUM LEVEL 8.1 MG/DL (8.5-10.1); CARBON DIOXIDE LEVEL 30 MEQ/L (21-32); CHLORIDE LEVEL 102 MEQ/L (98-107); CREATININE FOR GFR 0.54 MG/DL (0.55-1.30); GLOMERULAR FILTRATION RATE > 60.0 (>51); GLUCOSE, FASTING 98 MG/DL (70-100); POTASSIUM SERUM 3.7 MEQ/L (3.5-5.1); SODIUM LEVEL 137 MEQ/L (136-145)
[2019-03-05] MEDS: clonazePAM 1 MG TAB PO PRN ×2 (08:24→20:08)
[2019-03-05] MEDS: DULoxetine 20 MG CAP (CYMBALTA) PO SCH ×2 (08:24→20:08)
[2019-03-05] MEDS: PRIMIDONE 50 MG TAB PO SCH ×2 (08:24→20:08)
[2019-03-05] MEDS: OMEPRAZOLE 20 MG CAP PO SCH (08:24)
[2019-03-05] MEDS: THYROID 30 MG TAB PO SCH (08:24)
[2019-03-05] MEDS: risperiDONE 3 MG TAB PO SCH ×2 (08:24→20:08)
[2019-03-05] MEDS: ENOXAPARIN 40 MG/0.4 ML SYRINGE (J1650) SC SCH (08:25)
[2019-03-05] MEDS: methylPREDNISolone 1,000 MG, VIAL MATE ADAPTER 1 EACH in D5W 250 ML IV SCH (08:25)
[2019-03-05] MEDS: traMADol 50 MG TAB PO PRN ×2 (11:36→23:43)
[2019-03-05] MEDS: RIZATRIPTAN BENZOATE 10 MG TAB PO PRN ×2 (11:42→22:01)
[2019-03-05 11:47] VITALS: BP 110/69
[2019-03-05] MEDS ORDERED: LevoFLOXacin 500 MG TABLET PO ONE (17:00)
--- NOTE | 2019-03-05 17:14 | IPNPDOC ---
Text Note Date of Service The patient was seen on 03/05/19. NOTE SUBJECTIVE: No new complaints this morning. getting solumedrol. Pateint says the weakness is unchanged but she did say she is able to walk more. thinks that the weakness ie better. As per nurse pateint is having frequency of urination. Patient say she always does that at home. WIll get a post void residual. PHYSICAL EXAMINATION: General: tremulous, slow in speech and mentation but follows commands fully, flat affect, some release reflexes. Eyes: Normal sclera, EOMI, no nystagmus. HENT: Atraumatic Cardiovascular: Normal rate Pulmonary: Clear to auscultation b/l, no wheezing GI: Soft, nontender, nondistended Skin: Warm and dry Neuro: CN grossly intact. Generalized weakness worse in LE extremities equally. 5/5 in b/l UE. 4/5 in b/l LE. Sensations intact throughout. DTRs are decreased in the lower extremities. Psych: oriented x 3 LABORATORY DATA: See below. IMAGING: Head CT- Vascular calcification. No acute intracranial abnormality. CXR- Incomplete inspiratory effort, otherwise, negative AP and lateral chest. Cervical spine CT- Degenerative spondylosis changes moderate and diffuse. No significant change from September 02, 2015. Otherwise negative CT study of the cervical spine without contrast. No fracture seen. MRI Thoracic Several foci of abnormal cord signal is concerning for demyelination such as multiple sclerosis. Other etiologies such as transverse myelitis or neoplasm are less likely MRi lumber 1. Advanced degenerative spondylosis as above with moderate to severe multilevel central spinal canal stenosis. 2. Multilevel bilateral foraminal stenoses. MICROBIOLOGY: Please see below. ASSESSMENT AND PLAN: Patient is 58F with PMH gastric bypass surgery, recurrent UTIs, Anxiety/depression, Essential tremors , Migraine, HTN headaches, dizziness used to get botox injections brought in by family for worsening weakness and recurrent falls. Worsening over the past one year all well as change in speech, disbalance and difficulty in ambulation. Reported that patient has been unsteady for the past few months and appear to have worsened with progressive weakness. She also says that she has difficulty in remembering things. This time she came in after a fall. She reportedly has been taking excessive NiQuil to have help with sleep. Reportedly about 2 bottles/day? Her symptoms acutely worsened in the past week and she fell 4 times . Weakness and falls. has thoracic spine transverse myelitis. 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 PT/OT Encephalopathy with Possible? mild cognitive impairment could be due to medications, she is on benzos, takes nyquil. now seems to have resolved. UTI I do not think she has UTI . there are only 2 cells in the UA But as she is having frequency of urination will finish 5 day course of antibiotics for cystitis with levofloxacin end date on 03/06/19 Anxiety/Depression resume home meds. On clozazepam, resperidone, cymbalta H/o HTN BP controlled without any meds. Hypothyroid resume home med Chronic Migraine continue home meds Vertigo on meclizine DVT ppx: Lovenox Code status: Full code VS,Fishbone, I+O VS, Fishbone, I+O Laboratory Tests 03/05/19 06:59 Vital Signs Date Time Temp Pulse Resp B/P (MAP) Pulse Ox O2 Delivery O2 Flow Rate FiO2 03/05/19 12:06 18 03/05/19 11:47 97.1 93 110/69 (83) 95 Room Air I&O- Last 24 Hours up to 6 AM 03/05/19 06:00 Intake Total 1260 ml Output Total 350 ml Balance 910 ml SHAVONNE GARDINER MD Mar 05, 2019 17:14
[2019-03-05 20:00] VITALS: BP 131/68
[2019-03-05] MEDS ORDERED: KETOROLAC 30 MG/ML VIAL (J1885) IV ONE (20:00)
[2019-03-06 06:48] VITALS: BP 121/58
[2019-03-06 07:04] LABS: HEMATOCRIT 28.5 % (36.0-47.0); HEMOGLOBIN 9.3 g/dl (12.0-15.5); MEAN CORPUSCULAR HEMOGLOBIN 37.2 pg (27.0-33.0); MEAN CORPUSCULAR HGB CONC 32.6 g/dl (32.0-36.5); PLATELET COUNT, AUTOMATED 175 10^3/uL (150-450); WHITE BLOOD COUNT 4.8 10^3/uL (4.0-10.0)
[2019-03-06 07:23] LABS: BLOOD UREA NITROGEN 12 MG/DL (7-18); CALCIUM LEVEL 8.2 MG/DL (8.5-10.1); CARBON DIOXIDE LEVEL 33 MEQ/L (21-32); CHLORIDE LEVEL 102 MEQ/L (98-107); CREATININE FOR GFR 0.58 MG/DL (0.55-1.30); GLOMERULAR FILTRATION RATE > 60.0 (>51); GLUCOSE, FASTING 100 MG/DL (70-100); POTASSIUM SERUM 3.9 MEQ/L (3.5-5.1); SODIUM LEVEL 139 MEQ/L (136-145)
[2019-03-06] MEDS: ENOXAPARIN 40 MG/0.4 ML SYRINGE (J1650) SC SCH (09:23)
[2019-03-06] MEDS: methylPREDNISolone 1,000 MG, VIAL MATE ADAPTER 1 EACH in D5W 250 ML IV SCH (09:24)
[2019-03-06] MEDS: OMEPRAZOLE 20 MG CAP PO SCH (09:26)
[2019-03-06] MEDS: DULoxetine 20 MG CAP (CYMBALTA) PO SCH ×2 (09:26→20:48)
[2019-03-06] MEDS: THYROID 30 MG TAB PO SCH (09:26)
[2019-03-06] MEDS: PRIMIDONE 50 MG TAB PO SCH ×2 (09:27→20:48)
[2019-03-06] MEDS: risperiDONE 3 MG TAB PO SCH ×2 (09:27→20:47)
[2019-03-06] MEDS: clonazePAM 1 MG TAB PO PRN ×3 (09:27→20:55)
[2019-03-06] MEDS: RIZATRIPTAN BENZOATE 10 MG TAB PO PRN ×2 (11:12→20:55)
[2019-03-06] MEDS: traMADol 50 MG TAB PO PRN ×2 (11:13→20:47)
--- NOTE | 2019-03-06 12:18 | IPNPDOC ---
Text Note Date of Service The patient was seen on 03/06/19. NOTE SUBJECTIVE: No new complaints this morning. getting solumedrol. Pateint says the weakness is unchanged but she did say she is able to walk more. thinks that the weakness ie better. As per nurse pateint is having frequency of urination. Patient say she always does that at home. WIll get a post void residual. PHYSICAL EXAMINATION: General: tremulous, slow in speech and mentation but follows commands fully, flat affect, some release reflexes. Eyes: Normal sclera, EOMI, no nystagmus. HENT: Atraumatic Cardiovascular: Normal rate Pulmonary: Clear to auscultation b/l, no wheezing GI: Soft, nontender, nondistended Skin: Warm and dry Neuro: CN grossly intact. Generalized weakness worse in LE extremities equally. 5/5 in b/l UE. 4/5 in b/l LE. Sensations intact throughout. DTRs are decreased in the lower extremities. Psych: oriented x 3 LABORATORY DATA: See below. IMAGING: Head CT- Vascular calcification. No acute intracranial abnormality. CXR- Incomplete inspiratory effort, otherwise, negative AP and lateral chest. Cervical spine CT- Degenerative spondylosis changes moderate and diffuse. No significant change from September 02, 2015. Otherwise negative CT study of the cervical spine without contrast. No fracture seen. MRI Thoracic Several foci of abnormal cord signal is concerning for demyelination such as multiple sclerosis. Other etiologies such as transverse myelitis or neoplasm are less likely MRi lumber 1. Advanced degenerative spondylosis as above with moderate to severe multilevel central spinal canal stenosis. 2. Multilevel bilateral foraminal stenoses. LABS AND MICROBIOLOGY: Reviewed. Please see below. ASSESSMENT AND PLAN: Patient is 58F with PMH gastric bypass surgery, recurrent UTIs, Anxiety/depression, Essential tremors , Migraine, HTN headaches, dizziness used to get botox injections brought in by family for worsening weakness and recurrent falls. Worsening over the past one year all well as change in speech, disbalance and difficulty in ambulation. Reported that patient has been unsteady for the past few months and appear to have worsened with progressive weakness. She also says that she has difficulty in remembering things. This time she came in after a fall. She reportedly has been taking excessive NiQuil to have help with sleep. Reportedly about 2 bottles/day? Her symptoms acutely worsened in the past week and she fell 4 times . Weakness and falls. has thoracic spine transverse myelitis. 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 PT/OT Encephalopathy with Possible? mild cognitive impairment could be due to medications, she is on benzos, takes nyquil. now seems to have resolved. UTI I do not think she has UTI . there are only 2 cells in the UA But as she is having frequency of urination will finished 4 day course of antibiotics for cystitis with levofloxacin/ceftriaxone patient says she drinks a lot of water. post void bladder scan was negative for any retention. Anxiety/Depression resume home meds. On clozazepam, resperidone, cymbalta H/o HTN BP controlled without any meds. Hypothyroid resume home med Chronic Migraine continue home meds Vertigo on meclizine DVT ppx: Lovenox Code status: Full code VS,Fishbone, I+O VS, Fishbone, I+O Laboratory Tests 03/06/19 06:45 Vital Signs Date Time Temp Pulse Resp B/P (MAP) Pulse Ox O2 Delivery O2 Flow Rate FiO2 03/06/19 11:13 18 Room Air 03/06/19 06:48 97.6 91 121/58 (79) 97 I&O- Last 24 Hours up to 6 AM 03/06/19 06:00 Intake Total 960 ml Output Total 375 ml Balance 585 ml SHAVONNE GARDINER MD Mar 06, 2019 12:18
[2019-03-06 14:00] VITALS: BP 103/53
[2019-03-06] MEDS: RAMELTEON 8 MG TAB (ROZEREM) PO SCH (20:47)
[2019-03-06 21:00] VITALS: BP 135/69
[2019-03-07 00:06] LABS: VITAMIN B1 LEVEL WHOLE BLOOD 191.3 nmol/L (66.5-200.0)
[2019-03-07 04:00] VITALS: BP 123/58
[2019-03-07] MEDS: clonazePAM 1 MG TAB PO PRN ×3 (04:34→20:55)
[2019-03-07] MEDS: methylPREDNISolone 1,000 MG, VIAL MATE ADAPTER 1 EACH in D5W 250 ML IV SCH (08:19)
[2019-03-07] MEDS: ENOXAPARIN 40 MG/0.4 ML SYRINGE (J1650) SC SCH (08:20)
[2019-03-07] MEDS: OMEPRAZOLE 20 MG CAP PO SCH (08:20)
[2019-03-07] MEDS: DULoxetine 20 MG CAP (CYMBALTA) PO SCH ×2 (08:20→20:49)
[2019-03-07] MEDS: THYROID 30 MG TAB PO SCH (08:21)
[2019-03-07] MEDS: PRIMIDONE 50 MG TAB PO SCH ×2 (08:21→20:49)
[2019-03-07] MEDS: risperiDONE 3 MG TAB PO SCH ×2 (08:21→20:49)
[2019-03-07] MEDS: RIZATRIPTAN BENZOATE 10 MG TAB PO PRN (13:13)
[2019-03-07] MEDS: traMADol 50 MG TAB PO PRN (14:13)
--- NOTE | 2019-03-07 19:46 | IPNPDOC ---
Text Note Date of Service The patient was seen on 03/07/19. NOTE Subjective: Patient continues to have lower back pain. No any acute events overnight. Patient denies fever, chills, chest pain, palpitations, nausea, vomiting, diarrhea Objective: Morbidly obese female with tremors HEENT: PERRLA, EOMI, no JVD Cardiovascular: S1-S2 Lungs: Diminished lung sounds GI: Soft, nontender, nondistended Neuro: Significant weakness of right lower extremity to about 2/5, left lower extremity 4 out of 5. Sensations intact throughout. DTRs are decreased in the lower extremities. Assessment and plan: Patient is 58F with PMH gastric bypass surgery, recurrent UTIs, Anxiety/depression, Essential tremors , Migraine, HTN headaches, dizziness presented hospital with increased leg weakness and short-term memory problem Weakness and falls. MRI showed advanced degenerative spondylosis as above with moderate to severe multilevel central spinal canal stenosis. Multilevel bilateral foraminal stenoses. Neurologist recommended solumedrol x 5 days PT/[place] See above PT/OT Encephalopathy Could be secondary to polypharmacy Resolved for now UTI Completed course of antibiotics Anxiety/Depression Continue home meds H/o HTN Blood pressures under control Hypothyroid resume home med Chronic Migraine continue home meds Vertigo on meclizine DVT ppx: Lovenox Code status: Full code VS,Fishbone, I+O VS, Fishbone, I+O Vital Signs Date Time Temp Pulse Resp B/P (MAP) Pulse Ox O2 Delivery O2 Flow Rate FiO2 03/07/19 14:43 18 Room Air 03/07/19 14:00 97.2 97 91 03/07/19 04:00 123/58 (79) I&O- Last 24 Hours up to 6 AM 03/07/19 06:00 Intake Total 1500 ml Output Total 125 ml Balance 1375 ml MIGUEL SARAVIA DO Mar 07, 2019 19:46
[2019-03-07 20:00] VITALS: BP 138/81
[2019-03-07] MEDS: RAMELTEON 8 MG TAB (ROZEREM) PO SCH (20:49)
[2019-03-07] MEDS: LIDOCAINE 5% (LIDODERM) PATCH TD SCH (21:00)
[2019-03-08] MEDS: traMADol 50 MG TAB PO PRN ×3 (01:34→22:57)
[2019-03-08 06:00] VITALS: BP 134/70
[2019-03-08 06:52] LABS: HEMATOCRIT 29.5 % (36.0-47.0); HEMOGLOBIN 9.6 g/dl (12.0-15.5); MEAN CORPUSCULAR HEMOGLOBIN 36.9 pg (27.0-33.0); MEAN CORPUSCULAR HGB CONC 32.5 g/dl (32.0-36.5); MEAN CORPUSCULAR VOLUME 113.5 fl (80.0-96.0); PLATELET COUNT, AUTOMATED 207 10^3/uL (150-450); WHITE BLOOD COUNT 5.1 10^3/uL (4.0-10.0)
[2019-03-08 07:11] LABS: BLOOD UREA NITROGEN 10 MG/DL (7-18); CALCIUM LEVEL 8.4 MG/DL (8.5-10.1); CARBON DIOXIDE LEVEL 33 MEQ/L (21-32); CHLORIDE LEVEL 100 MEQ/L (98-107); CREATININE FOR GFR 0.59 MG/DL (0.55-1.30); GLOMERULAR FILTRATION RATE > 60.0 (>51); GLUCOSE, FASTING 104 MG/DL (70-100); POTASSIUM SERUM 3.5 MEQ/L (3.5-5.1); SODIUM LEVEL 138 MEQ/L (136-145)
[2019-03-08 08:00] VITALS: BP 131/66
[2019-03-08] MEDS: OMEPRAZOLE 20 MG CAP PO SCH (08:17)
[2019-03-08] MEDS: ENOXAPARIN 40 MG/0.4 ML SYRINGE (J1650) SC SCH (08:17)
[2019-03-08] MEDS: THYROID 30 MG TAB PO SCH (08:17)
[2019-03-08] MEDS: clonazePAM 1 MG TAB PO PRN ×2 (08:17→14:57)
[2019-03-08] MEDS: risperiDONE 3 MG TAB PO SCH ×2 (08:18→20:44)
[2019-03-08] MEDS: DULoxetine 20 MG CAP (CYMBALTA) PO SCH ×2 (08:18→20:44)
[2019-03-08] MEDS: PRIMIDONE 50 MG TAB PO SCH ×2 (08:18→20:44)
[2019-03-08] MEDS: **NOTE PATIENT COMMENT** MISC XX SCH (08:23)
[2019-03-08] MEDS: RIZATRIPTAN BENZOATE 10 MG TAB PO PRN (10:27)
[2019-03-08 14:00] VITALS: BP 127/58
--- NOTE | 2019-03-08 16:19 | IPNPDOC ---
Text Note Date of Service The patient was seen on 03/08/19. NOTE Subjective: Patient continues to have lower back pain. She described pain is severe, dull, bilateral No any acute events overnight. Patient denies fever, chills, chest pain, p alpitations, nausea, vomiting, diarrhea Objective: Morbidly obese female with tremors HEENT: PERRLA, EOMI, no JVD Cardiovascular: S1-S2 Lungs: Diminished lung sounds GI: Soft, nontender, nondistended Neuro: Significant weakness of right lower extremity to about 2/5, left lower extremity 4 out of 5. Sensations intact throughout. DTRs are decreased in the lower extremities Assessment and plan: Patient is 58F with PMH gastric bypass surgery, recurrent UTIs, Anxiety/depression, Essential tremors , Migraine, HTN headaches, dizziness presented hospital with increased leg weakness and short-term memory problem Weakness and falls. MRI showed advanced degenerative spondylosis as above with moderate to severe multilevel central spinal canal stenosis. Multilevel bilateral foraminal stenoses. I talked to Dr. Casillas, he diagnosed patients with transverse myelitis, he recommended 5 days of steroids PT/[place] See above PT/OT Encephalopathy Could be secondary to polypharmacy Resolved for now UTI Completed course of antibiotics Anxiety/Depression Continue home meds H/o HTN Blood pressures under control Hypothyroid resume home med Chronic Migraine continue home meds Vertigo on meclizine Forgetfulness and unsteady gait There is concern for multiple sclerosis Chest MRI showed several foci of abnormal cord signal is concerning for demyelination such as multiple sclerosis. Other etiologies such as transverse myelitis or neoplasm are less likely. I will proceed with brain MRI to rule out brain demyelination lesions due to multiple sclerosis Also Dr. Casillas discussed lumbar puncture with patient, but she declined. VS,Fishbone, I+O VS, Fishbone, I+O Laboratory Tests 03/08/19 06:37 Vital Signs Date Time Temp Pulse Resp B/P (MAP) Pulse Ox O2 Delivery O2 Flow Rate FiO2 03/08/19 14:00 98.4 101 18 127/58 (81) 98 Room Air I&O- Last 24 Hours up to 6 AM 03/08/19 06:00 Intake Total 1320 ml Output Total 1650 ml Balance -330 ml MIGUEL SARAVIA DO Mar 08, 2019 16:19
[2019-03-08 20:00] VITALS: BP 111/62
[2019-03-08] MEDS: RAMELTEON 8 MG TAB (ROZEREM) PO SCH (20:44)
[2019-03-08] MEDS: LIDOCAINE 5% (LIDODERM) PATCH TD SCH (20:45)
[2019-03-08] MEDS ORDERED: PROHANCE 279.3MG/ML 5ML VIAL (A9576) As Ordered ONE (21:53)
[2019-03-08] MEDS ORDERED: PROHANCE 279.3MG/ML 15ML VIAL (A9576) As Ordered ONE (21:53)
--- NOTE | 2019-03-08 23:13 | REPVR ---
PROCEDURE INFORMATION: Exam: MR Head Without and With Contrast Exam date and time: 03/08/2019 10:35 PM Age: 58 years old Clinical indication: Walking, difficulty and other: Ms; Additional info: Multiple sclerosis TECHNIQUE: Imaging protocol: MR of the head without and with intravenous contrast. 3D rendering: MIP and/or 3D reconstructed images were created by the technologist. Contrast material: PROHANCE; Contrast volume: 20 ml; Contrast route: IV; COMPARISON: MRI-Brain without Contrast 2013-04-13 09:12 FINDINGS: Brain: Normal brain volume. No diffusion restriction to suggest acute ischemia or infarct. No abnormal FLAIR parenchymal signal hyperintensities. No gradient susceptibility blooming within the brain parenchyma to suggest hemorrhage. No midline shift, mass, or fluid collection is present. The brainstem, posterior fossa and cervical medullary junction are preserved. No abnormal cerebral enhancement. Ventricles: Normal. No ventriculomegaly. Bones/joints: Unremarkable. Soft tissues: Unremarkable. Sinuses: Normal as visualized. No acute sinusitis. Mastoid air cells: Trace right mastoid effusion. Orbits: Unremarkable. IMPRESSION: Unremarkable. Electronically signed by: Miles Adler On 03/08/2019 23:13:35 PM
[2019-03-09 00:06] LABS: ANA (HEP2) Negative (.); ANGIOTENSIN 1 CONVERTING ENZYM 23 U/L (14-82); Lyme Disease IgG/IgM Antibodie <0.91 ISR (0.00-0.90); Lyme Disease IgM Ab Quantitati <0.80 index (0.00-0.79); SSA SJOGRENS A <0.2 AI (0.0-0.9); SSB SJOGRENS B <0.2 AI (0.0-0.9)
[2019-03-09 06:00] VITALS: BP 123/68
[2019-03-09] MEDS ORDERED: ACETAMINOPHEN TAB 650MG DOSE (2X325MG) PO PRN (06:00)
[2019-03-09] MEDS: clonazePAM 1 MG TAB PO PRN ×3 (06:09→15:00)
[2019-03-09 07:00] LABS: HEMATOCRIT 30.3 % (36.0-47.0); HEMOGLOBIN 9.8 g/dl (12.0-15.5); MEAN CORPUSCULAR HGB CONC 32.3 g/dl (32.0-36.5); PLATELET COUNT, AUTOMATED 220 10^3/uL (150-450); RED BLOOD COUNT 2.65 10^6/uL (4.00-5.40); WHITE BLOOD COUNT 5.4 10^3/uL (4.0-10.0)
[2019-03-09 07:03] LABS: MEAN CORPUSCULAR VOLUME 114.3 fl (80.0-96.0)
[2019-03-09 07:26] LABS: BLOOD UREA NITROGEN 11 MG/DL (7-18); CALCIUM LEVEL 8.5 MG/DL (8.5-10.1); CARBON DIOXIDE LEVEL 34 MEQ/L (21-32); CHLORIDE LEVEL 100 MEQ/L (98-107); CREATININE FOR GFR 0.56 MG/DL (0.55-1.30); GLOMERULAR FILTRATION RATE > 60.0 (>51); GLUCOSE, FASTING 110 MG/DL (70-100); POTASSIUM SERUM 3.8 MEQ/L (3.5-5.1); SODIUM LEVEL 139 MEQ/L (136-145)
[2019-03-09] MEDS: THYROID 30 MG TAB PO SCH (08:20)
[2019-03-09] MEDS: OMEPRAZOLE 20 MG CAP PO SCH (08:20)
[2019-03-09] MEDS: PRIMIDONE 50 MG TAB PO SCH ×2 (08:20→21:12)
[2019-03-09] MEDS: DULoxetine 20 MG CAP (CYMBALTA) PO SCH ×2 (08:21→21:12)
[2019-03-09] MEDS: **NOTE PATIENT COMMENT** MISC XX SCH (08:21)
[2019-03-09] MEDS: risperiDONE 3 MG TAB PO SCH ×2 (08:21→21:13)
[2019-03-09] MEDS: ENOXAPARIN 40 MG/0.4 ML SYRINGE (J1650) SC SCH (08:21)
[2019-03-09] MEDS: traMADol 50 MG TAB PO PRN ×2 (12:41→21:13)
[2019-03-09 14:00] VITALS: BP 122/68
--- NOTE | 2019-03-09 16:05 | IPNPDOC ---
Text Note Date of Service The patient was seen on 03/09/19. NOTE Subjective: Patient continues to have lower back pain. No any acute events overnight. Patient denies fever, chills, chest pain, palpitations, nausea, vomiting, diarrhea Objective: Morbidly obese female with tremors HEENT: PERRLA, EOMI, no JVD Cardiovascular: S1-S2 Lungs: Diminished lung sounds GI: Soft, nontender, nondistended Neuro: Significant weakness of right lower extremity to about 2/5, left lower extremity 4 out of 5. Sensations intact throughout. DTRs are decreased in the lower extremities Assessment and plan: Patient is 58F with PMH gastric bypass surgery, recurrent UTIs, Anxiety/depression, Essential tremors , Migraine, HTN headaches, dizziness presented hospital with increased leg weakness and short-term memory problem Weakness and falls. MRI showed advanced degenerative spondylosis as above with moderate to severe multilevel central spinal canal stenosis. Multilevel bilateral foraminal stenoses. I talked to Dr. Casillas, he diagnosed patients with transverse myelitis, he recommended 5 days of steroids PT/[place] See above PT/OT Encephalopathy Could be secondary to polypharmacy Resolved for now UTI Completed course of antibiotics Anxiety/Depression Continue home meds H/o HTN Blood pressures under control Hypothyroid resume home med Chronic Migraine continue home meds Vertigo on meclizine Forgetfulness and unsteady gait There is concern for multiple sclerosis Chest MRI showed several foci of abnormal cord signal is concerning for demyelination such as multiple sclerosis. Other etiologies such as transverse myelitis or neoplasm are less likely. brain MRI negative Also Dr. Casillas discussed lumbar puncture with patient, but she declined. VS,Fishbone, I+O VS, Fishbone, I+O Laboratory Tests 03/09/19 06:47 Vital Signs Date Time Temp Pulse Resp B/P (MAP) Pulse Ox O2 Delivery O2 Flow Rate FiO2 03/09/19 14:00 98.4 94 122/68 (86) 93 Room Air 03/09/19 13:11 18 I&O- Last 24 Hours up to 6 AM 03/09/19 06:00 Intake Total 540 ml Balance 540 ml MIGUEL SARAVIA DO Mar 09, 2019 16:05
[2019-03-09] MEDS: RIZATRIPTAN BENZOATE 10 MG TAB PO PRN (18:16)
[2019-03-09 20:00] VITALS: BP 135/89
[2019-03-09] MEDS: LIDOCAINE 5% (LIDODERM) PATCH TD SCH (21:00)
[2019-03-09] MEDS: RAMELTEON 8 MG TAB (ROZEREM) PO SCH (21:13)
[2019-03-10] MEDS: clonazePAM 1 MG TAB PO PRN ×2 (03:48→08:42)
[2019-03-10 04:00] VITALS: BP_SYST 125; BP_SYST 136; BP_DIAS 56; BP_DIAS 63
[2019-03-10 07:14] LABS: HEMATOCRIT 35.8 % (36.0-47.0); HEMOGLOBIN 11.4 g/dl (12.0-15.5); MEAN CORPUSCULAR HEMOGLOBIN 36.3 pg (27.0-33.0); MEAN CORPUSCULAR HGB CONC 31.8 g/dl (32.0-36.5); PLATELET COUNT, AUTOMATED 288 10^3/uL (150-450); RED BLOOD COUNT 3.14 10^6/uL (4.00-5.40); WHITE BLOOD COUNT 5.6 10^3/uL (4.0-10.0)
[2019-03-10 07:41] LABS: BLOOD UREA NITROGEN 10 MG/DL (7-18); CALCIUM LEVEL 9.2 MG/DL (8.5-10.1); CARBON DIOXIDE LEVEL 34 MEQ/L (21-32); CHLORIDE LEVEL 100 MEQ/L (98-107); CREATININE FOR GFR 0.64 MG/DL (0.55-1.30); GLOMERULAR FILTRATION RATE > 60.0 (>51); GLUCOSE, FASTING 113 MG/DL (70-100); MAGNESIUM LEVEL 2.2 MG/DL (1.8-2.4); POTASSIUM SERUM 3.9 MEQ/L (3.5-5.1); SODIUM LEVEL 138 MEQ/L (136-145)
[2019-03-10] MEDS: OMEPRAZOLE 20 MG CAP PO SCH (08:41)
[2019-03-10] MEDS: risperiDONE 3 MG TAB PO SCH (08:41)
[2019-03-10] MEDS: THYROID 30 MG TAB PO SCH (08:41)
[2019-03-10] MEDS: DULoxetine 20 MG CAP (CYMBALTA) PO SCH (08:41)
[2019-03-10] MEDS: PRIMIDONE 50 MG TAB PO SCH (08:41)
[2019-03-10] MEDS: ENOXAPARIN 40 MG/0.4 ML SYRINGE (J1650) SC SCH (08:42)
[2019-03-10] MEDS: **NOTE PATIENT COMMENT** MISC XX SCH (08:42)
[2019-03-10] MEDS: RIZATRIPTAN BENZOATE 10 MG TAB PO PRN (09:00)
[2019-03-10] MEDS ORDERED: RAME8TAB2 PO (10:18)
[2019-03-10] MEDS ORDERED: TRAM50TA2 PO (10:18)
[2019-03-10] MEDS: traMADol 50 MG TAB PO PRN (11:37)
--- NOTE | 2019-03-10 17:48 | DS.PDOC ---
Discharge Summary General Date of Admission Mar 01, 2019 at 17:44 Date of Discharge 03/10/19 Discharge Summary PROCEDURES PERFORMED DURING STAY: [None]. ADMITTING DIAGNOSES: Weakness and falls. Falls Encephalopathy UTI Anxiety/Depression H/o HTN Hypothyroid Vertigo Chronic Migraine DISCHARGE DIAGNOSES: Weakness and falls. Falls Encephalopathy UTI Anxiety/Depression H/o HTN Hypothyroid Vertigo Chronic Migraine COMPLICATIONS/CHIEF COMPLAINT: Ams; Uti. HISTORY OF PRESENT ILLNESS: Jossy Michel is a 58-year-old woman with history of tremor for 10 years. Her tremor has been getting worse over the last 1 year. The patient has noted increased difficulty with balance and unsteadiness while walking over the last couple of weeks. Her problems have been particularly worse over last 1 week and she has fallen four times. She was able to walk independently before. Her had to get a walker, but the patient did not use it and fell several times and ended up in the hospital. She ran out of her clonazepam for 10 days around 2018. She denies any other changes in her medications. She denies any other illness. She has history of chronic neck and back pain. Her neck and back pain are 6/10 in intensity. She feels weakness in her legs. She denies any numbness or tingling in her legs. She denies urinary incontinence or loss of consciousness. She feels her memory is terrible. She forgets everything. She briefly saw us in 2012 for her migraines and vertigo, but did not want to take any medications. She was getting Botox at that time and planned to continue Botox, but later stopped getting Botox as well. She currently denies any dizziness or vertigo. She feels off balance HOSPITAL COURSE: During hospital stay following issue addressed Weakness and falls. MRI showed advanced degenerative spondylosis as above with moderate to severe multilevel central spinal canal stenosis. Multilevel bilateral foraminal stenoses. I talked to Dr. Casillas, he diagnosed patients with transverse myelitis, he recommended 5 days of steroids PT/Ot Falls See above PT/OT Encephalopathy Could be secondary to polypharmacy Resolved for now UTI Completed course of antibiotics Anxiety/Depression Continue home meds H/o HTN Blood pressures under control Hypothyroid resume home med Chronic Migraine continue home meds Vertigo on meclizine Forgetfulness and unsteady gait There is concern for multiple sclerosis Chest MRI showed several foci of abnormal cord signal is concerning for demyelination such as multiple sclerosis. Other etiologies such as transverse myelitis or neoplasm are less likely. brain MRI negative Also Dr. Casillas discussed lumbar puncture with patient, but she declined. DISCHARGE MEDICATIONS: Please see below. ALLERGIES: Please see below. PHYSICAL EXAMINATION ON DISCHARGE: VITAL SIGNS: Please see below. Objective: Morbidly obese female with tremors HEENT: PERRLA, EOMI, no JVD Cardiovascular: S1-S2 Lungs: Diminished lung sounds GI: Soft, nontender, nondistended Neuro: Significant weakness of right lower extremity to about 2/5, left lower extremity 4 out of 5. Sensations intact throughout. DTRs are decreased in the lower extremities LABORATORY DATA: Please see below. IMAGING: [facility] NAME: JOSSY MICHEL DATE OF : 1960 BUSINESS NUMBER: [id number] AGE: 58 SEX: F REPORT #: [id number] ROOM: [address] TECHNOLOGIST: [facility] DOCTOR: BLAYNE CASILLAS MD Ordered for Date&Time: 03/02/192057 cc: [~ rep ct ivnm] Service Date&Time: 03/02/192241 This report is in Signed status. Interpretation performed by [facility]. Thank you for having your radiology procedures performed at [facility] RADIOLOGY REPORT Date&Time printed: [~ rep prt dt last] [~ rep prt tm last] Page 2 of 2 [place] [id number] RADIOLOGY REPORT This report is in Signed status. Interpretation performed by [facility]. Thank you for having your radiology procedures performed at [facility] RADIOLOGY REPORT Date&Time printed: [~ rep prt dt last] [~ rep prt tm last] Page 1 of 2 PROCEDURE INFORMATION: Exam: MR Thoracic Spine Without Contrast Exam date and time: 03/02/2019 10:42 PM Age: 58 years old Clinical indication: Weakness; Additional info: Gait difficulty and ataxia TECHNIQUE: Imaging protocol: Multiplanar magnetic resonance images of the thoracic spine without intravenous contrast. COMPARISON: No relevant prior studies available. FINDINGS: Vertebrae: Degenerative spondylosis in the cervical spine. Discogenic and endplate degenerative changes. No fracture or malalignment. Spinal cord: Multiple short-segment longitudinal foci of abnormal T2 hyperintense cord signal are seen from T6 to T8 and also at T10-11, best appreciated on the sagittal STIR sequence. No mass, syrinx, or myelomalacia. T1-T2: Disc desiccation with small posterior disc bulge causing mild spinal stenosis. T2-T3: Disc desiccation with small posterior disc bulge causing mild spinal stenosis. T3-T4: No significant disc disease. No significant spinal stenosis. T4-T5: Disc degeneration with small posterior disc bulge. T5-T6: Disc degeneration with small posterior disc bulge. T6-T7: Disc degeneration with small posterior disc bulge. T7-T8: Mild disc degeneration without spinal stenosis. T8-T9: Disc degeneration with small left parasagittal disc bulge. No cord compression. T9-T10: Disc desiccation with small posterior disc bulge causing mild spinal stenosis. T10-T11: Disc degeneration with small posterior disc bulge. T11-T12: No significant disc disease. No significant spinal stenosis. Soft tissues: Unremarkable. Other findings: The exam is degraded by patient motion artifact. IMPRESSION: 1. Several foci of abnormal cord signal is concerning for demyelination such as multiple sclerosis. Other etiologies such as transverse myelitis or neoplasm are less likely. Consider follow-up contrast-enhanced spinal MRI and imaging of the remainder of the neuraxis. 2. Degenerative spondylosis as above. Electronically signed by: Vinh Gross On 03/02/2019 22:55:49 PM DD: VINH GROSS MD 03/02/192241 DT: TYRONE 03/02/192254 DS: DANII 03/02/192254 [~ rep ct labl] PROGNOSIS: Favorable ACTIVITY: As tolerated DIET: Regular DISCHARGE PLAN: Home DISPOSITION: Home Health Service. DISCHARGE INSTRUCTIONS: Continue physical therapy ITEMS TO FOLLOWUP ON ON OUTPATIENT: Follow-up with neurologist DISCHARGE CONDITION: Stable TIME SPENT ON DISCHARGE: Greater than 20 minutes. Vital Signs/I&Os Vital Signs Date Time Temp Pulse Resp B/P (MAP) Pulse Ox O2 Delivery O2 Flow Rate FiO2 03/10/19 11:37 18 03/10/19 04:00 97.8 93 125/56 (79) 92 Room Air I&O- Last 24 Hours up to 6 AM 03/10/19 06:00 Intake Total 1020 ml Balance 1020 ml Laboratory Data Labs 24H Laboratory Tests 2 03/10/19 06:56: Nucleated Red Blood Cells % (auto) 0.0, Anion Gap 4L, Glomerular Filtration Rate > 60.0, Calcium Level 9.2, Magnesium Level 2.2 CBC/BMP Laboratory Tests 03/10/19 06:56 Microbiology Microbiology 03/01/19 Blood Culture - Final, Complete NO GROWTH AFTER 5 DAYS 03/01/19 Blood Culture - Final, Complete NO GROWTH AFTER 5 DAYS 03/01/19 Urine Culture - Final, Complete Escherichia Coli Discharge Medications Scheduled Calcium Carb/Vitamin D3/Vit K1 (Citracal Soft Chew) 1 Each Tab.chew, 2 EACH PO BID, (Reported) Duloxetine HCl (Duloxetine HCl) 40 Mg Capsule.dr, 80 MG PO BID, (Reported) Ergocalciferol (Vitamin D2) (Vitamin D2) 50,000 Units Cap, 50,000 UNIT PO QWEEK, (Reported) SATURDAYS Omeprazole (Omeprazole) 20 Mg Capsule.dr, 20 MG PO DAILY, (Reported) Primidone (Primidone) 50 Mg Tablet, 200 MG PO BID, (Reported) Ramelteon (Ramelteon) 8 Mg Tablet, 8 MG PO QHS Risperidone (Risperidone) 2 Mg Tablet, 3 MG PO BID, (Reported) Thyroid,Pork (Gis Professor Thyroid) 15 Mg Tablet, 15 MG PO DAILY, (Reported) TAKE WITH 30MG TAB FOR TOTAL OF 45MG DAILY Thyroid,Pork (Gis Professor Thyroid) 30 Mg Tablet, 30 MG PO DAILY, (Reported) TAKE WITH 15MG TAB FOR TOTAL DOSE OF 45MG DAILY Scheduled PRN Clonazepam (Clonazepam) 1 Mg Tablet, 1 MG PO TID PRN for ANXIETY, (Reported) MAY TAKE TWO TABS IF NEEDED Meclizine HCl (Meclizine HCl) 25 Mg Tablet, 25 MG PO Q8H PRN for DIZZINESS, (Reported) TAKES 1/2 TO 1 TAB IF NEEDED Rizatriptan Benzoate (Rizatriptan) 10 Mg Tablet, 10 MG PO BID PRN for HEADACHE, (Reported) Tramadol HCl (Tramadol HCl) 50 Mg Tablet, 50 MG PO Q8HP PRN for moderate to severe pain Allergies Coded Allergies: No Known Allergies (Unverified , 09/15/17) MIGUEL SARAVIA DO Mar 10, 2019 17:48
== END 2019-03-10 11:45 | disposition home health service (06) | DRG 948 ==
LOC: M ED 12:47 → EDBD 12:47 → M ED INP 17:44 → ENRESERVTM 03-02 07:22 → ENRESERVDT 03-02 07:22 → M MS4PR 03-02 10:05
PROVIDERS: ADMIT Student in an Organized Health Care Education/Training Program; ATTEND Internal Medicine
DX: R53.1 Weakness (principal); E87.1 Hypo-osmolality and hyponatremia; G21.11 Neuroleptic induced parkinsonism; G93.40 Encephalopathy, unspecified; N39.0 Urinary tract infection, site not specified; Z68.41 Body mass index [BMI] 40.0-44.9, adult; G37.3 Acute transverse myelitis in demyelinating disease of central nervous system; E86.0 Dehydration; F32.9 Major depressive disorder, single episode, unspecified; F41.9 Anxiety disorder, unspecified; G25.0 Essential tremor; G43.709 Chronic migraine without aura, not intractable, without status migrainosus; R35.0 Frequency of micturition; M54.2 Cervicalgia; M48.061 Spinal stenosis, lumbar region without neurogenic claudication; E03.9 Hypothyroidism, unspecified; I10 Essential (primary) hypertension; G31.84 Mild cognitive impairment of uncertain or unknown etiology; T43.505A Adverse effect of unspecified antipsychotics and neuroleptics, initial encounter; R42 Dizziness and giddiness; E66.01 Morbid (severe) obesity due to excess calories; B96.20 Unspecified Escherichia coli [E. coli] as the cause of diseases classified elsewhere; R29.6 Repeated falls; R26.81 Unsteadiness on feet; Z98.84 Bariatric surgery status; Z90.49 Acquired absence of other specified parts of digestive tract; Z90.710 Acquired absence of both cervix and uterus; Z79.899 Other long term (current) drug therapy

== ENCOUNTER → 2020-02-16 | Outpatient (REF) | payer OTHER ==
[~2020-02-16] MED LIST changes: +CALC-263 PO; +CLON1TAB8 PO; +DULO-34 PO; +MECL1TAB31 PO; +NP T15TA PO; +NP T30TA PO; +OMEP-218 PO; +PRIM50TA6 PO; +RAME8TAB2 PO; +RISP-9 PO; +RIZA10TA2 PO; +TRAM50TA2 PO; +VITA50005 PO
== END ==
LOC: M LAB REF 17:04
PROVIDERS: ATTEND Physician Assistant
DX: R50.9 Fever, unspecified (principal)

== ENCOUNTER 2020-02-19 06:33 | Inpatient (IN) | payer OTHER ==
[~2020-02-19] VITALS: Ht 160 cm; Wt 93.0 kg
[2020-02-19] MEDS ORDERED: ACETAMINOPHEN TAB 650MG DOSE (2X325MG) PO ONE (06:45)
[2020-02-19] MEDS ORDERED: NS 1,000 ML IV ONE (06:45)
--- NOTE | 2020-02-19 07:47 | ECGEPIP ---
[facility] - ED Test Date: 2020-02-19 Pat Name: ORTEGA AVENDAÑO Department: Room: - Gender: Female Log Inspector: hadley : 1960 Requested By: Eddie Canada Order Number: [id number] Reading MD: Eddie Thornton Measurements Intervals [place] Rate: 91 P: 38 GA: 108 QRS: 42 QRSD: 93 T: 36 QT: 354 QTc: 436 Interpretive Statements SINUS RHYTHM WITH SHORT GA INTERVAL NONSPECIFIC T-WAVE ABNORMALITY SIMILAR TO 09/15/17 Electronically Signed on 02-19-2020 7:47:17 EST by Eddie Thornton
[2020-02-19 08:03] LABS: BASO % 0.1 % (0.0-1.0); HEMATOCRIT 31.9 % (36.0-47.0); HEMOGLOBIN 10.9 g/dl (12.0-15.5); LYMPH # 0.2 10^3/uL (1.5-5.0); LYMPH % 1.3 % (24.0-44.0); MEAN CORPUSCULAR HEMOGLOBIN 30.4 pg (27.0-33.0); MEAN CORPUSCULAR HGB CONC 34.2 g/dl (32.0-36.5); MEAN CORPUSCULAR VOLUME 89.1 fl (80.0-96.0); MONO # 2.2 10^3/uL (0.0-0.8); MONO % 13.1 % (0.0-5.0); NEUTROPHILS # 14.1 10^3/uL (1.5-8.5); NEUTROPHILS % 84.7 % (36.0-66.0); PLATELET COUNT, AUTOMATED 184 10^3/uL (150-450); RED BLOOD COUNT 3.58 10^6/uL (4.00-5.40); WHITE BLOOD COUNT 16.6 10^3/uL (4.0-10.0)
--- NOTE | 2020-02-19 08:03 | REP ---
INDICATION: FUO COMPARISON: 03/01/2019 TECHNIQUE: Portable AP view of the chest FINDINGS: The mediastinum and cardiac silhouette are stable and within normal limits for portable technique. The lung park are clear without acute consolidation, effusion, or pneumothorax. Skeletal structures are intact. IMPRESSION: No acute cardiopulmonary process appreciated. <Electronically signed by Ilan Womack > 02/19/20 [id number]
[2020-02-19 08:26] LABS: ALBUMIN 2.7 GM/DL (3.2-5.2); BILIRUBIN,DIRECT 0.3 MG/DL (0.0-0.2); BILIRUBIN,TOTAL 0.6 MG/DL (0.2-1.0); CALCIUM LEVEL 7.9 MG/DL (8.5-10.1); CREATININE FOR GFR 1.37 MG/DL (0.55-1.30); GLOMERULAR FILTRATION RATE 42.2 (>51); POTASSIUM SERUM 3.1 MEQ/L (3.5-5.1); TOTAL PROTEIN 5.6 GM/DL (6.4-8.2)
[2020-02-19 08:33] LABS: CK-MB VALUE MASS 1.2 NG/ML (<3.6); CPK CREATINE PHOSPHOKINASE 396 U/L (26-192); TROPONIN I < 0.02 NG/ML (< 0.10)
[2020-02-19] MEDS ORDERED: POTASSIUM CHLORIDE 10 MEQ SR TABLET PO ONE ×2 (08:45→10:00)
[2020-02-19] MEDS ORDERED: PIPERACILLIN/TAZOBACTAM SOD 4.5 GM in D5W MINI-BAG PLUS 50 ML IV ONE (09:00)
[2020-02-19] MEDS ORDERED: ISOVUE-370 76% 100ML VIAL As Ordered ONE (09:31)
--- NOTE | 2020-02-19 10:07 | REP ---
INDICATION: fever COMPARISON: None. TECHNIQUE: Axial contrast enhanced images from the thoracic inlet to the upper abdomen using pulmonary embolus technique with multiplanar re-formations. 100 ml Isovue 370 intravenous contrast material administered without complication. This CT examination was performed using the following dose reduction techniques: Automated exposure control, adjustment of mA and/or kv according to the patient's size, and use of iterative reconstruction technique. FINDINGS: Satisfactory enhancement of the pulmonary vasculature is achieved and no filling defects are identified to suggest pulmonary embolus. Further evaluation of the mediastinum demonstrates normal thoracic aorta, heart and pericardium. The lung park demonstrate very subtle early airspace disease in the right upper lobe and trace posterobasilar atelectasis. Tracheobronchial tree is patent. No nodule or mass lesion is identified. No adenopathy noted. Surrounding musculoskeletal structures intact IMPRESSION: No evidence for pulmonary embolus. Subtle airspace disease may reflect early acute pneumonia. <Electronically signed by Ilan Womack > 02/19/20 [id number]
--- NOTE | 2020-02-19 10:11 | REP ---
INDICATION: fever. COMPARISON: 09/02/2015 TECHNIQUE: Axial contrast-enhanced images from the lung bases to the pubic symphysis using 100 cc Isovue 370 intravenous contrast material. Coronal and sagittal reformations obtained. This CT examination was performed using the following dose reduction techniques: Automated exposure control, adjustment of mA and/or kv according to the patient's size, and the use of iterative reconstruction technique. FINDINGS: Striated linear low-density areas through the left renal parenchyma along with perinephric stranding suggests acute pyelonephritis and should be correlated with physical examination and urinalysis. No hydroureteronephrosis or nephroureterolithiasis is appreciated. The right kidney is relatively normal in appearance. Liver demonstrates mild diffuse fatty infiltration without focal lesion. Spleen, pancreas, and bilateral adrenal glands are relatively normal/stable. Evidence for prior cholecystectomy and gastric bypass noted to the upper abdomen. The enteric system is without obstruction or acute inflammatory process. Sigmoid diverticula noted without acute diverticulitis. Pelvis demonstrates normal bladder and evidence for prior hysterectomy. No ascites. No free air. No adenopathy. Abdominal aorta without aneurysm or dissection. Musculoskeletal structures demonstrate age-related changes without acute osseous abnormality. IMPRESSION: 1. Findings related to the left kidney consistent with acute pyelonephritis. Correlation with physical examination and urinalysis recommended. <Electronically signed by Ilan Womack > 02/19/20 [id number]
[2020-02-19] MEDS: NS 1,000 ML IV SCH ×4 (10:24→12:05)
[2020-02-19] MEDS ORDERED: TRAZ-252 PO (10:28)
[2020-02-19] MEDS ORDERED: ACET-897 PO (10:28)
[2020-02-19 13:00] VITALS: BP 130/63
[2020-02-19 14:00] VITALS: BP 133/68
--- NOTE | 2020-02-19 15:48 | HPEPDOC ---
[facility] Medical History & Physical Date of Admission Feb 19, 2020 Date of Service: Feb 19, 2020 History and Physical CHIEF COMPLAINT: Not feeling well for a week HISTORY OF PRESENT ILLNESS: 59-year-old female with past medical history significant for recurrent urinary tract infection, anxiety, depression, migraines, tremors, hypertension, gastric bypass, morbid obesity, BMI 42.2. Prior cholecystectomy, hysterectomy and carpal tunnel surgery, presents to emergency room with 1 week history of not feeling well with on and off fevers of 102-101, urinary frequency without dysuria or urgency, flank pain, shortness of breath, cough but admits to having generalized weakness, slight confusion, decreased appetite and chills. She denies any current headaches, changes in vision, diarrhea, chest pain, pressure, tightness, lightheadedness or dizziness ,abdominal pain, nausea, vomiting. In the ER she was found to have a fever of 101,2 and white count of 16.6. CT chest, abdomen and pelvis shows pneumonia and pyelonephritis PAST MEDICAL HISTORY: Transverse myelitis, treated with steroids ,urinary tract infection, anxiety, depression, migraines, tremors, hypertension, gastric bypass, morbid obesity, BMI 42.2. , Moderate to severe lumbar spinal stenosis neuroleptic/risperidone induced parkinsonism PAST SURGICAL HISTORY: Prior cholecystectomy, hysterectomy and carpal tunnel surgery, SOCIAL HISTORY: , Denies alcohol but previously smoked 2 packs a day, quit in 1995. 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 Father unknown medical issues ALLERGIES: Please see below. REVIEW OF SYSTEMS: 12 point review of systems negative aside from positive findings in HPI HOME MEDICATIONS: Please see below. PHYSICAL EXAMINATION: VITAL SIGNS: See below GENERAL APPEARANCE: Slow to speak but awake, alert, oriented to herself and place. Answers questions appropriately. No respiratory distress or use of respiratory accessory muscles HEENT: No pharyngeal erythema, tonsillar exudate cervical lymphadenopathy, thyromegaly, JVD. Moist mucous membranes CARDIOVASCULAR: S1, S2 regular rate rhythm LUNGS: Diminished breath sounds. No wheezing or rales ABDOMEN: Obese, soft, nontender, nondistended, positive bowel sounds. Left CVA tenderness. No rebound, guarding, no hepatosplenomegaly EXTREMITIES: No pitting edema NEUROLOGICAL: Awake, alert, oriented to person and place. Answers questions appropriately. Face is symmetric. Tongue is midline. No pronator drift. Negative Babinski. Motor function. 4. Extremities 5 out of 5. No sensory disturbance LABORATORY DATA: See below. IMAGING: ct chest 02/19/20 INDICATION: fever COMPARISON: None. TECHNIQUE: Axial contrast enhanced images from the thoracic inlet to the upper abdomen using pulmonary embolus technique with multiplanar re-formations. 100 ml Isovue 370 intravenous contrast material administered without complication. This CT examination was performed using the following dose reduction techniques: Automated exposure control, adjustment of mA and/or kv according to the patient's size, and use of iterative reconstruction technique. FINDINGS: Satisfactory enhancement of the pulmonary vasculature is achieved and no filling defects are identified to suggest pulmonary embolus. Further evaluation of the mediastinum demonstrates normal thoracic aorta, heart and pericardium. The lung park demonstrate very subtle early airspace disease in the right upper lobe and trace posterobasilar atelectasis. Tracheobronchial tree is patent. No nodule or mass lesion is identified. No adenopathy noted. Surrounding musculoskeletal structures intact IMPRESSION: No evidence for pulmonary embolus. Subtle airspace disease may reflect early acute pneumonia. ct abdpelvis 02/19/[address] examination was performed using the following dose reduction techniques: Automated exposure control, adjustment of mA and/or kv according to the patient's size, and the use of iterative reconstruction technique. FINDINGS: Striated linear low-density areas through the left renal parenchyma along with perinephric stranding suggests acute pyelonephritis and should be correlated with physical examination and urinalysis. No hydroureteronephrosis or nephroureterolithiasis is appreciated. The right kidney is relatively normal in appearance. Liver demonstrates mild diffuse fatty infiltration without focal lesion. Spleen, pancreas, and bilateral adrenal glands are relatively normal/stable. Evidence for prior cholecystectomy and gastric bypass noted to the upper abdomen. The enteric system is without obstruction or acute inflammatory process. Sigmoid diverticula noted without acute diverticulitis. Pelvis demonstrates normal bladder and evidence for prior hysterectomy. No ascites. No free air. No adenopathy. Abdominal aorta without aneurysm or dissection. Musculoskeletal structures demonstrate age-related changes without acute osseous abnormality. IMPRESSION: 1. Findings related to the left kidney consistent with acute pyelonephritis. Correlation with physical examination and urinalysis recommended. MICROBIOLOGY: Please see below. ASSESSMENT: 59-year-old female with past medical history significant for recurrent urinary tract infection, anxiety, depression, migraines, tremors, hypertension, gastric bypass, morbid obesity, BMI 42.2. Prior cholecystectomy, hysterectomy and carpal tunnel surgery, presents to emergency room with 1 week history of not feeling well with on and off fevers of 102-101, urinary frequency without dysuria or urgency, flank pain, shortness of breath, cough but admits to having generalized weakness, slight confusion, decreased appetite and chills. She denies any current headaches, changes in vision, diarrhea, chest pain, pressure, tightness, lightheadedness or dizziness ,abdominal pain, nausea, vomiting. In the ER she was found to have a fever of 101,2 and white count of 16.6. CT chest, abdomen and pelvis shows pneumonia and pyelonephritis Left-sided perinephritis Patient has previous history of Escherichia coli UTI and has had recurrent issu es. She's been given Zosyn. Review of previous culture result shows costello sensitivity. We'll await urine culture, C&S, and de-escalate antibiotics, supportive care with intravenous fluids normal saline 2 and maintenance at 150. Amylase per hour. Check blood culture results Questionable community acquired pneumonia Patient has no acute symptoms of pneumonia such as cough or shortness of breath. She has an early possible pneumonia on CT chest. Currently on IV Zosyn for now. If patient develops symptoms of pneumonia. May need to add atypical coverage. Sputum culture and sensitivity.. She is negative for coronary virus 19 Acute encephalopathy Per records, patient has altered mental status, but in the ER. She is able to provide history, although slow to speak. Face was still symmetric. Most likely secondary to acute infection with left-sided pyelonephritis as well as possible early pneumonia. Supportive care for now. She appears to be appropriate with no aspiration history. She'll be resumed on a 2 g sodium diet and continue with IV antibiotics Zosyn day #1 today. Await urine and blood cultures , Hypertension Due to acute infection. We'll hold off on all her blood pressure medications and continue with IV fluids History of gastric bypass surgery and obesity, BMI of 42.2 If patient's mental status worsens, we'll check an arterial blood gas to rule out acute respiratory acidosis with CO2 retention. Try to avoid any sedatives, hypnotics, and opioids Anxiety and depression , Chronic History of transverse myelitis treated with steroids for 5 days. No acute complaints Disposition 2-3 days pending urine and blood culture results Vital Signs Vital Signs Date Time Temp Pulse Resp B/P (MAP) Pulse Ox O2 Delivery O2 Flow Rate FiO2 02/19/20 14:00 98.6 74 18 133/68 (89) 96 Room Air 02/19/20 12:29 2.0 Laboratory Data Labs 24H Laboratory Tests 2 02/19/20 06:44: Anion Gap 11, Glomerular Filtration Rate 42.2L, Lactic Acid Level 1.6, Calcium Level 7.9L, Total Bilirubin 0.6, Direct Bilirubin 0.3H, Aspartate Amino Transf (AST/SGOT) 35, Alanine Aminotransferase (ALT/SGPT) 48, Alkaline Phosphatase 130H, Total Protein 5.6L, Albumin 2.7L, Albumin/Globulin Ratio 0.9L 02/19/20 07:18: Immature Granulocyte % (Auto) 0.8, Neutrophils (%) (Auto) 84.7H, Lymphocytes (%) (Auto) 1.3L, Monocytes (%) (Auto) 13.1H, Eosinophils (%) (Auto) 0.0, Basophils (%) (Auto) 0.1, Neutrophils # (Auto) 14.1H, Lymphocytes # (Auto) 0.2L, Monocytes # (Auto) 2.2H, Eosinophils # (Auto) 0.0, Basophils # (Auto) 0.0, Nucleated Red Blood Cells % (auto) 0.0, Urine Color JILL, Urine Appearance CLOUDYH, Urine pH 5.0, Urine Specific [place] 1.011, Urine Protein 1+H, Urine Glucose (UA) NEGATIVE, Urine Ketones NEGATIVE, Urine Blood 1+H, Urine Nitrite NEGATIVE, Urine Bilirubin NEGATIVE, Urine Urobilinogen 4.0H, Urine Leukocyte Esterase TRACEH, Urine WBC (Auto) 6H, Urine RBC (Auto) 2, Urine Hyaline Casts (Auto) 0, Urine Bacteria (Auto) 2+H, Urine Squamous Epithelial Cells 0, Urine Amorphous Sediment SMALLH, Urine Sperm (Auto) , Total Creatine Kinase 396H, Creatine Kinase MB 1.2, Creatine Kinase MB Relative Index 0.30, Troponin I < 0.02 CBC/BMP Laboratory Tests 02/19/20 06:44 02/19/20 07:18 Microbiology Microbiology 02/19/20 Blood Culture, Received Pending 02/19/20 Blood Culture, Received Pending 02/19/20 Urine Culture, Received Pending 02/19/20 Respiratory Virus Panel (PCR) ([facility]) - Final, Complete Home Medications Scheduled Calcium Carb/Vitamin D3/Vit K1 (Citracal Soft Chew) 1 Each Tab.chew, 2 EACH PO DAILY Duloxetine HCl (Duloxetine HCl) 40 Mg Capsule.dr, 80 MG PO BID Ergocalciferol (Vitamin D2) (Vitamin D2) 50,000 Units Cap, 50,000 UNIT PO QWEEK SATURDAYS Omeprazole (Omeprazole) 20 Mg Capsule.dr, 20 MG PO DAILY Primidone (Primidone) 50 Mg Tablet, 200 MG PO BID Risperidone (Risperidone) 2 Mg Tablet, 3 MG PO BID Thyroid,Pork (Guest Relations Receptionist Thyroid) 15 Mg Tablet, 15 MG PO DAILY TAKE WITH 30MG TAB FOR TOTAL OF 45MG DAILY Thyroid,Pork (Guest Relations Receptionist Thyroid) 30 Mg Tablet, 30 MG PO DAILY TAKE WITH 15MG TAB FOR TOTAL DOSE OF 45MG DAILY Trazodone HCl (Trazodone HCl) 50 Mg Tablet, 150 MG PO QHS Scheduled PRN Acetaminophen (Tylenol Extra Strength) 500 Mg Tablet, 1,000 MG PO Q6H PRN for PAIN Clonazepam (Clonazepam) 1 Mg Tablet, 1 MG PO TID PRN for ANXIETY MAY TAKE TWO TABS IF NEEDED Allergies Coded Allergies: No Known Allergies (Unverified , 09/15/17) A-FIB/CHADSVASC A-FIB History Current/History of A-Fib/PAF?: No Current PO Anticoag Therapy: No Age/Risk Factor Scoring CHADSVASC: CHADSVASC Response (Comments) Value Age Risk Factor Age < 65 years old 0 Gender Risk Factor Female 1 Hx of CHF No 0 Hx of HTN No 0 Hx of Stroke/TIA/or VTE No 0 Hx of Diabetes No 0 Hx of Vascular Disease No 0 Total 1 Treatment Treatment ordered: NONE DEBORA CUEVA MD Feb 19, 2020 15:47
[2020-02-19] MEDS: PIPERACILLIN/TAZOBACTAM SOD 3.375 GM in D5W MINI-BAG PLUS 50 ML IV SCH ×2 (16:41→22:03)
[2020-02-19] MEDS: ACETAMINOPHEN TAB 650MG DOSE (2X325MG) PO PRN (16:43)
[2020-02-19] MEDS: PRIMIDONE 50 MG TAB PO SCH (20:50)
[2020-02-19] MEDS: DULoxetine 20 MG CAP (CYMBALTA) PO SCH (20:50)
[2020-02-19] MEDS: risperiDONE 3 MG TAB PO SCH (20:50)
[2020-02-19] MEDS: traZODone 50 MG TAB PO SCH (20:50)
[2020-02-19 20:59] VITALS: BP 138/81
[2020-02-20] MEDS: clonazePAM 1 MG TAB PO PRN ×2 (01:09→21:09)
[2020-02-20] MEDS: ACETAMINOPHEN TAB 650MG DOSE (2X325MG) PO PRN ×2 (01:10→13:08)
[2020-02-20] MEDS: NS 1,000 ML IV SCH ×2 (04:50→05:54)
[2020-02-20] MEDS: PIPERACILLIN/TAZOBACTAM SOD 3.375 GM in D5W MINI-BAG PLUS 50 ML IV SCH ×4 (04:50→22:37)
[2020-02-20 05:40] LABS: BASO % 0.2 % (0.0-1.0); EOS # 0.1 10^3/uL (0.0-0.5); EOS % 0.4 % (0.0-3.0); HEMOGLOBIN 9.1 g/dl (12.0-15.5); LYMPH # 0.8 10^3/uL (1.5-5.0); LYMPH % 5.4 % (24.0-44.0); MEAN CORPUSCULAR HEMOGLOBIN 30.4 pg (27.0-33.0); MEAN CORPUSCULAR HGB CONC 32.5 g/dl (32.0-36.5); MEAN CORPUSCULAR VOLUME 93.6 fl (80.0-96.0); MONO # 1.9 10^3/uL (0.0-0.8); MONO % 12.8 % (0.0-5.0); NEUTROPHILS # 11.6 10^3/uL (1.5-8.5); NEUTROPHILS % 80.3 % (36.0-66.0); PLATELET COUNT, AUTOMATED 168 10^3/uL (150-450); RED BLOOD COUNT 2.99 10^6/uL (4.00-5.40); WHITE BLOOD COUNT 14.5 10^3/uL (4.0-10.0)
[2020-02-20 05:45] VITALS: BP 131/74
[2020-02-20] MEDS: THYROID 30 MG TAB PO SCH (05:53)
[2020-02-20 06:05] LABS: BLOOD UREA NITROGEN 7 MG/DL (7-18); CALCIUM LEVEL 8.3 MG/DL (8.5-10.1); CARBON DIOXIDE LEVEL 18 MEQ/L (21-32); CHLORIDE LEVEL 106 MEQ/L (98-107); CREATININE FOR GFR 0.81 MG/DL (0.55-1.30); GLOMERULAR FILTRATION RATE > 60.0 (>51); GLUCOSE, FASTING 109 MG/DL (70-100); POTASSIUM SERUM 3.2 MEQ/L (3.5-5.1); SODIUM LEVEL 132 MEQ/L (136-145)
[2020-02-20] MEDS ORDERED: FLUBLOK(EGG FREE)(QUAD)INFLUENZA VACC 0.5ML SYRINGE 18YRS & OLDER IM ONE (09:00)
[2020-02-20] MEDS: PRIMIDONE 50 MG TAB PO SCH ×2 (09:27→20:58)
[2020-02-20] MEDS: DULoxetine 20 MG CAP (CYMBALTA) PO SCH ×2 (09:27→20:57)
[2020-02-20] MEDS: OMEPRAZOLE 20 MG CAP PO SCH (09:27)
[2020-02-20] MEDS: risperiDONE 3 MG TAB PO SCH ×2 (09:32→20:58)
[2020-02-20] MEDS ORDERED: POTASSIUM CHLORIDE 10 MEQ SR TABLET PO ONE (10:00)
--- NOTE | 2020-02-20 12:42 | IPNPDOC ---
Date Seen The patient was seen on 02/20/20. Progress Note SUBJECTIVE: febrile overnight 102.7 but decreased white count and denies chills, dysuria, urgency, frequency, flank pain,n/v/cough or abd pain. no issues per RN. PHYSICAL EXAMINATION: VITAL SIGNS: See below GENERAL APPEARANCE:no distress aaox 3 answering questions appropriately but takes a few seconds to respond. HEENT:face is symmetric. No pharyngeal erythema, tonsillar exudate cervical ly mphadenopathy, thyromegaly, JVD. Moist mucous membranes CARDIOVASCULAR: S1, S2 regular rate rhythm LUNGS: Diminished breath sounds. No wheezing or rales ABDOMEN: Obese, soft, nontender, nondistended, positive bowel sounds. Left CVA tenderness. No rebound, guarding, no hepatosplenomegaly EXTREMITIES: No pitting edema. no cyanois or clubbing NEUROLOGICAL: Awake, alert, oriented to person and place. Answers questions appropriately. Face is symmetric. Tongue is midline. No pronator drift. Negative Babinski. Motor function. 4. Extremities 5 out of 5. No sensory disturbance no focal deficits dtr's intact 2+ LABORATORY DATA: See below. IMAGING: ct chest 02/19/20 INDICATION: fever COMPARISON: None. TECHNIQUE: Axial contrast enhanced images from the thoracic inlet to the upper abdomen using pulmonary embolus technique with multiplanar re-formations. 100 ml Isovue 370 intravenous contrast material administered without complication. This CT examination was performed using the following dose reduction techniques: Automated exposure control, adjustment of mA and/or kv according to the patien t's size, and use of iterative reconstruction technique. FINDINGS: Satisfactory enhancement of the pulmonary vasculature is achieved and no filling defects are identified to suggest pulmonary embolus. Further evaluation of the mediastinum demonstrates normal thoracic aorta, heart and pericardium. The lung park demonstrate very subtle early airspace disease in the right upper lobe and trace posterobasilar atelectasis. Tracheobronchial tree is patent. No nodule or mass lesion is identified. No adenopathy noted. Surrounding musculoskeletal structures intact IMPRESSION: No evidence for pulmonary embolus. Subtle airspace disease may reflect early acute pneumonia. ct abdpelvis 02/19/[address] examination was performed using the following dose reduction techniques: Automated exposure control, adjustment of mA and/or kv according to the patient's size, and the use of iterative reconstruction technique. FINDINGS: Striated linear low-density areas through the left renal parenchyma along with perinephric stranding suggests acute pyelonephritis and should be correlated with physical examination and urinalysis. No hydroureteronephrosis or nephroureterolithiasis is appreciated. The right kidney is relatively normal in appearance. Liver demonstrates mild diffuse fatty infiltration without focal lesion. Spleen, pancreas, and bilateral adrenal glands are relatively normal/stable. Evidence for prior cholecystectomy and gastric bypass noted to the upper abdomen. The enteric system is without obstruction or acute inflammatory process. Sigmoid diverticula noted without acute diverticulitis. Pelvis demonstrates normal bladder and evidence for prior hysterectomy. No ascites. No free air. No adenopathy. Abdominal aorta without aneurysm or dissection. Musculoskeletal structures demonstrate age-related changes without acute osseous abnormality. IMPRESSION: 1. Findings related to the left kidney consistent with acute pyelonephritis. Correlation with physical examination and urinalysis recommended. MICROBIOLOGY: Please see below. ASSESSMENT: 59-year-old female with past medical history significant for recurrent urinary tract infection, anxiety, depression, migraines, tremors, hypertension, gastric bypass, morbid obesity, BMI 42.2. Prior cholecystectomy, hysterectomy and carpal tunnel surgery, presents to emergency room with 1 week history of not feeling well with on and off fevers of 102-101, urinary frequency without dysuria or urgency, flank pain, shortness of breath, cough but admits to having generalized weakness, slight confusion, decreased appetite and chills. She denies any current headaches, changes in vision, diarrhea, chest pain, pressure, tightness, lightheadedness or dizziness ,abdominal pain, nausea, vomiting. In the ER she was found to have a fever of 101,2 and white count of 16.6. CT chest, abdomen and pelvis shows pneumonia and pyelonephritis Left-sided pyelonephritis -day #2 zosyn -still febrile but with decreasing leukocytosis -awaitin urine culture and sensitivity to de-escalate antibiotics -will need a total of 10-14 days of antibiotics, but can be changed to po meds once sensitivity results are available. -denies pain; on no pain meds aside for prn acetaminophen for fever. Questionable community acquired pneumonia Patient has no acute symptoms of pneumonia such as cough or shortness of breath. She has an early possible pneumonia on CT chest. Currently on IV Zosyn -negative for coronavirus -19 -no c/o cough or sob -on day # 2 zosyn -sputum culture ordered. Acute encephalopathy Per records, patient has altered mental status, but in the ER. She is able to provide history, although slow to speak. Face was still symmetric. Most likely secondary to acute infection with left-sided pyelonephritis as well as possible early pneumonia. Supportive care for now. Hypertension may resume po meds if sbp>140mmhg History of gastric bypass surgery and obesity, BMI 36.3 complicating care outpt weight loss and diet program Anxiety and depression , Chronic History of transverse myelitis treated with steroids for 5 days. No acute complaints VS, I&O, 24H, Fishbone Vital Signs/I&O Vital Signs Date Time Temp Pulse Resp B/P (MAP) Pulse Ox O2 Delivery O2 Flow Rate FiO2 02/20/20 05:45 98.5 81 18 131/74 (93) 97 Room Air 02/19/20 12:29 2.0 I&O- Last 24 Hours up to 6 AM 02/20/20 06:00 Intake Total 4430 ml Output Total 200 ml Balance 4230 ml Laboratory Data 24H LABS Laboratory Tests 2 02/20/20 05:20: Immature Granulocyte % (Auto) 0.9, Neutrophils (%) (Auto) 80.3H, Lymphocytes (%) (Auto) 5.4L, Monocytes (%) (Auto) 12.8H, Eosinophils (%) (Auto) 0.4, Basophils (%) (Auto) 0.2, Neutrophils # (Auto) 11.6H, Lymphocytes # (Auto) 0.8L, Monocytes # (Auto) 1.9H, Eosinophils # (Auto) 0.1, Basophils # (Auto) 0.0, Nucleated Red Blood Cells % (auto) 0.0, Anion Gap 8, Glomerular Filtration Rate > 60.0, Calcium Level 8.3L CBC/BMP Laboratory Tests 02/20/20 05:20 Microbiology Microbiology 02/19/20 Blood Culture - Preliminary, Resulted No growth after 24 hours . All specim... 02/19/20 Blood Culture - Preliminary, Resulted No growth after 24 hours . All specim... 02/19/20 Urine Culture, Received Pending 02/19/20 Respiratory Virus Panel (PCR) ([facility]) - Final, Complete DEBORA CUEVA MD Feb 20, 2020 12:42
[2020-02-20 14:00] VITALS: BP 131/77
[2020-02-20] MEDS ORDERED: LEVALBUTEROL 1.25 MG/0.5 ML CONCENTRATE NEB INH PRN (14:00)
[2020-02-20] MEDS: LEVALBUTEROL 1.25 MG/0.5 ML CONCENTRATE NEB INH SCH ×2 (14:43→19:50)
[2020-02-20] MEDS: guaiFENesin ER 600 MG TAB PO SCH ×2 (15:42→20:58)
[2020-02-20] MEDS: traZODone 50 MG TAB PO SCH (20:58)
[2020-02-20 22:00] VITALS: BP 138/75
[2020-02-21] MEDS: PIPERACILLIN/TAZOBACTAM SOD 3.375 GM in D5W MINI-BAG PLUS 50 ML IV SCH ×4 (04:25→21:20)
[2020-02-21 06:00] VITALS: BP 140/81
[2020-02-21] MEDS: THYROID 30 MG TAB PO SCH (06:43)
[2020-02-21] MEDS: LEVALBUTEROL 1.25 MG/0.5 ML CONCENTRATE NEB INH SCH ×4 (07:12→19:39)
--- NOTE | 2020-02-21 07:24 | IPNPDOC ---
Date Seen The patient was seen on 02/21/20. Progress Note SUBJECTIVE: dry cough difficult to expectorate, with minimal relief w nebs. no chills no dysuria PHYSICAL EXAMINATION: VITAL SIGNS: See below GENERAL APPEARANCE:no distress aaox 3 slow to speak in soft voice HEENT:face is symmetric. No pharyngeal erythema, tonsillar exudate cervical lymphadenopathy, thyromegaly, JVD. Moist mucous membranes CARDIOVASCULAR: S1, S2 regular rate rhythm LUNGS: rhonchi b/l aebe ABDOMEN: Obese, soft, nontender, nondistended, positive bowel sounds. Left CVA tenderness. No rebound, guarding, no hepatosplenomegaly EXTREMITIES: No pitting edema. no cyanois or clubbing NEUROLOGICAL: Awake, alert, oriented to person and place. Answers questions appropriately. Face is symmetric. Tongue is midline. No pronator drift. Negative Babinski. Motor function. 4. Extremities 5 out of 5. No sensory disturbance no focal deficits dtr's intact 2+ LABORATORY DATA: See below. IMAGING: ct chest 02/19/20 INDICATION: fever COMPARISON: None. TECHNIQUE: Axial contrast enhanced images from the thoracic inlet to the upper abdomen using pulmonary embolus technique with multiplanar re-formations. 100 ml Isovue 370 intravenous contrast material administered without complication. This CT examination was performed using the following dose reduction techniques: Automated exposure control, adjustment of mA and/or kv according to the patient's size, and use of iterative reconstruction technique. FINDINGS: Satisfactory enhancement of the pulmonary vasculature is achieved and no filling defects are identified to suggest pulmonary embolus. Further evaluation of the mediastinum demonstrates normal thoracic aorta, heart and pericardium. The lung park demonstrate very subtle early airspace disease in the right upper lobe and trace posterobasilar atelectasis. Tracheobronchial tree is patent. No nodule or mass lesion is identified. No adenopathy noted. Surrounding musculoskeletal structures intact IMPRESSION: No evidence for pulmonary embolus. Subtle airspace disease may reflect early acute pneumonia. ct abdpelvis 02/19/[address] examination was performed using the following dose reduction techniques: Automated exposure control, adjustment of mA and/or kv according to the patient's size, and the use of iterative reconstruction technique. FINDINGS: Striated linear low-density areas through the left renal parenchyma along with perinephric stranding suggests acute pyelonephritis and should be correlated with physical examination and urinalysis. No hydroureteronephrosis or nephroureterolithiasis is appreciated. The right kidney is relatively normal in appearance. Liver demonstrates mild diffuse fatty infiltration without focal lesion. Spleen, pancreas, and bilateral adrenal glands are relatively normal/stable. Evidence for prior cholecystectomy and gastric bypass noted to the upper abdomen. The enteric system is without obstruction or acute inflammatory process. Sigmoid diverticula noted without acute diverticulitis. Pelvis demonstrates normal bladder and evidence for prior hysterectomy. No ascites. No free air. No adenopathy. Abdominal aorta without aneurysm or dissection. Musculoskeletal structures demonstrate age-related changes without acute osseous abnormality. IMPRESSION: 1. Findings related to the left kidney consistent with acute pyelonephritis. Correlation with physical examination and urinalysis recommended. MICROBIOLOGY: Please see below. ASSESSMENT: 59-year-old female with past medical history significant for recurrent urinary tract infection, anxiety, depression, migraines, tremors, hypertension, gastric bypass, morbid obesity, BMI 42.2. Prior cholecystectomy, hysterectomy and carpal tunnel surgery, presents to emergency room with 1 week history of not feeling well with on and off fevers of 102-101, urinary frequency without dysuria or urgency, flank pain, shortness of breath, cough but admits to having generalized weakness, slight confusion, decreased appetite and chills. She denies any current headaches, changes in vision, diarrhea, chest pain, pressure, tightness, lightheadedness or dizziness ,abdominal pain, nausea, vomiting. In the ER she was found to have a fever of 101,2 and white count of 16.6. CT chest, abdomen and pelvis shows pneumonia and pyelonephritis Left-sided pyelonephritis -day #3 zosyn -awaiting urine culture and sensitivity to de-escalate antibiotics -will need a total of 10-14 days of antibiotics, but can be changed to po meds once sensitivity results are available. -denies pain; on no pain meds aside for prn acetaminophen for fever. Questionable community acquired pneumonia Patient has no acute symptoms of pneumonia such as cough or shortness of breath. She has an early possible pneumonia on CT chest. Currently on IV Zosyn -negative for coronavirus -19 -c/o dry cough given mucinex -nebs prn -on day # 3 zosyn day#3 doxycycline -sputum culture ordered, but no sample available -given acapella and incentive spirometry Acute encephalopathy -back to baseline -due to uti and pna Hypertension may resume po meds if sbp>140mmhg History of gastric bypass surgery and obesity, BMI 36.3 complicating care outpt weight loss and diet program Anxiety and depression , Chronic History of transverse myelitis treated with steroids for 5 days. No acute complaints VS, I&O, 24H, Fishbone Vital Signs/I&O Vital Signs Date Time Temp Pulse Resp B/P (MAP) Pulse Ox O2 Delivery O2 Flow Rate FiO2 02/21/20 06:00 98.2 94 18 140/81 (100) 97 Room Air 02/19/20 12:29 2.0 I&O- Last 24 Hours up to 6 AM 02/21/20 06:00 Intake Total 3050 ml Balance 3050 ml Laboratory Data Microbiology Microbiology 02/19/20 Blood Culture - Preliminary, Resulted No growth after 24 hours . All specim... 02/19/20 Blood Culture - Preliminary, Resulted No growth after 24 hours . All specim... 02/19/20 Urine Culture, Received Pending 02/19/20 Respiratory Virus Panel (PCR) ([facility]) - Final, Complete DEBORA CUEVA MD Feb 21, 2020 07:24
[2020-02-21 07:49] LABS: HEMATOCRIT 27.9 % (36.0-47.0); HEMOGLOBIN 9.2 g/dl (12.0-15.5); MEAN CORPUSCULAR VOLUME 90.9 fl (80.0-96.0); PLATELET COUNT, AUTOMATED 164 10^3/uL (150-450); RED BLOOD COUNT 3.07 10^6/uL (4.00-5.40); WHITE BLOOD COUNT 7.3 10^3/uL (4.0-10.0)
[2020-02-21 08:13] LABS: BLOOD UREA NITROGEN 4 MG/DL (7-18); CALCIUM LEVEL 8.1 MG/DL (8.5-10.1); CARBON DIOXIDE LEVEL 21 MEQ/L (21-32); CHLORIDE LEVEL 102 MEQ/L (98-107); CREATININE FOR GFR 0.87 MG/DL (0.55-1.30); GLOMERULAR FILTRATION RATE > 60.0 (>51); GLUCOSE, FASTING 225 MG/DL (70-100); POTASSIUM SERUM 3.5 MEQ/L (3.5-5.1); SODIUM LEVEL 133 MEQ/L (136-145)
[2020-02-21 08:57] LABS: EOSINOPHILS 2 % (0-3); LYMPHOCYTES 11 % (16-44); MONOCYTES 2 % (0-5); NEUTROPHILS 84 % (28-66); PLATELET ESTIMATE NORMAL (NORMAL)
[2020-02-21] MEDS: PRIMIDONE 50 MG TAB PO SCH ×2 (09:35→21:19)
[2020-02-21] MEDS: OMEPRAZOLE 20 MG CAP PO SCH (09:35)
[2020-02-21] MEDS: guaiFENesin ER 600 MG TAB PO SCH ×2 (09:35→21:19)
[2020-02-21] MEDS: DULoxetine 20 MG CAP (CYMBALTA) PO SCH ×2 (09:35→21:19)
[2020-02-21] MEDS: risperiDONE 3 MG TAB PO SCH ×2 (10:19→21:20)
[2020-02-21 14:00] VITALS: BP 135/79
[2020-02-21] MEDS: traZODone 50 MG TAB PO SCH (21:19)
[2020-02-21] MEDS: clonazePAM 1 MG TAB PO PRN (21:19)
[2020-02-21] MEDS: ACETAMINOPHEN TAB 650MG DOSE (2X325MG) PO PRN (21:20)
[2020-02-21 22:00] VITALS: BP 134/79
[2020-02-22] MEDS: PIPERACILLIN/TAZOBACTAM SOD 3.375 GM in D5W MINI-BAG PLUS 50 ML IV SCH ×2 (03:54→08:54)
[2020-02-22] MEDS: LEVALBUTEROL 1.25 MG/0.5 ML CONCENTRATE NEB INH SCH ×4 (05:31→11:19)
[2020-02-22] MEDS: THYROID 30 MG TAB PO SCH (05:47)
[2020-02-22 06:00] VITALS: BP 139/82
[2020-02-22 06:47] LABS: HEMATOCRIT 27.5 % (36.0-47.0); HEMOGLOBIN 9.1 g/dl (12.0-15.5); MEAN CORPUSCULAR HEMOGLOBIN 30.3 pg (27.0-33.0); MEAN CORPUSCULAR HGB CONC 33.1 g/dl (32.0-36.5); MEAN CORPUSCULAR VOLUME 91.7 fl (80.0-96.0); PLATELET COUNT, AUTOMATED 213 10^3/uL (150-450); WHITE BLOOD COUNT 6.9 10^3/uL (4.0-10.0)
[2020-02-22 07:04] LABS: BLOOD UREA NITROGEN 3 MG/DL (7-18); CALCIUM LEVEL 8.7 MG/DL (8.5-10.1); CARBON DIOXIDE LEVEL 24 MEQ/L (21-32); CHLORIDE LEVEL 106 MEQ/L (98-107); GLOMERULAR FILTRATION RATE > 60.0 (>51); GLUCOSE, FASTING 114 MG/DL (70-100); POTASSIUM SERUM 3.7 MEQ/L (3.5-5.1); SODIUM LEVEL 138 MEQ/L (136-145)
[2020-02-22 07:07] LABS: ANISOCYTOSIS 1+; ATYPICAL LYMPH 2 % (0-5); BASOPHILS 1 % (0-1); EOSINOPHILS 3 % (0-3); LYMPHOCYTES 10 % (16-44); METAMYELOCYTES 3 % (0-0); MONOCYTES 12 % (0-5); NEUTROPHILS 68 % (28-66); PLATELET ESTIMATE NORMAL (NORMAL); POIKILOCYTOSIS 1+
[2020-02-22] MEDS: risperiDONE 3 MG TAB PO SCH (08:53)
[2020-02-22] MEDS: PRIMIDONE 50 MG TAB PO SCH (08:53)
[2020-02-22] MEDS: DULoxetine 20 MG CAP (CYMBALTA) PO SCH (08:54)
[2020-02-22] MEDS: OMEPRAZOLE 20 MG CAP PO SCH (08:54)
[2020-02-22] MEDS: guaiFENesin ER 600 MG TAB PO SCH (08:54)
[2020-02-22] MEDS ORDERED: LEVO750T14 PO (12:55)
[2020-02-22] MEDS ORDERED: PROAAER10 INH (12:55)
--- NOTE | 2020-02-23 23:50 | DS.PDOC ---
Discharge Summary General Date of Admission Feb 19, 2020 at 09:49 Date of Discharge Feb 22, 2020 Attending Physician: ESTEFANY LORD DO Discharge Summary PROCEDURES PERFORMED DURING STAY: None. ADMITTING DIAGNOSES: 1. Left-sided perinephritis 2. Community acquired pneumonia 3. Acute encephalopathy 4. Hypertension 5. History of gastric bypass surgery 6. Obesity 7. Anxiety and depression DISCHARGE DIAGNOSES: 1. Left-sided perinephritis 2. Community acquired pneumonia 3. Acute encephalopathy 4. Hypertension 5. History of gastric bypass surgery 6. Obesity 7. Anxiety and depression COMPLICATIONS/CHIEF COMPLAINT: Urinary Tract Infection. HISTORY OF PRESENT ILLNESS: Mrs. Michel is a 59 year old female with obesity s/p gastric bypass who presents to the ED for 1 week of malaise, fevers of 101 to 102, and urinary frequency without dysuria, urgency, flank pain, dyspnea, or cough. While in the ED, she had a temperature of 101.2 and a WBC of 16.6. UA demonstrated pyuria with bacteria. CT chest demonstrated pneumonia and CT abdome n and pelvis demonstrated pyelonephritis. Patient was admitted for left sided pyelonephritis and CAP. HOSPITAL COURSE: Patient was on Zosyn for the UTI and Zosyn and doxycycline for the CAP. She had another fever on Feb 19, but defervesced afterwards. WBC declined from 16.6 on admission to 6.9 today. Urine culture grew E.coli that was resistant to ampicillin. Patient was put on Levofloxacin. Today patient felt well and felt ready for home. Patient was subsequently discharged home. DISCHARGE MEDICATIONS: Please see below. ALLERGIES: Please see below. PHYSICAL EXAMINATION ON DISCHARGE: VITAL SIGNS: Please see below. GENERAL: Comfortable, in no apparent distress, soft voice HEENT: Head normocephalic, atraumatic, EOMI NECK: Supple CARDIOVASCULAR EXAMINATION: Regular rate and rhythm RESPIRATORY EXAMINATION: Bilateral rhonchi ABDOMINAL EXAMINATION: Soft, non-tender, normal bowel sounds EXTREMITIES: No pitting edema bilaterally SKIN: Warm and dry NEUROLOGICAL EXAMINATION: CN 3-12 grossly intact PSYCHIATRIC EXAMINATION: Normal mood and affect LABORATORY DATA: Please see below. IMAGING: CTA chest No evidence for pulmonary embolus. Subtle airspace disease may reflect early acute pneumonia. CT abd/pelvis 1. Findings related to the left kidney consistent with acute pyelonephritis. Correlation with physical examination and urinalysis recommended. PROGNOSIS: Good ACTIVITY: As tolerated. DIET: As tolerated DISCHARGE PLAN: Home DISPOSITION: 01 Home, Self-Care. DISCHARGE INSTRUCTIONS: 1. Follow up with PCP in 1 week 2. Please take levofloxacin to completion DISCHARGE CONDITION: Stable. Total time spent on discharge planning, discharge summary, and medication reconciliation: 40 minutes Vital Signs/I&Os Vital Signs Date Time Temp Pulse Resp B/P (MAP) Pulse Ox O2 Delivery O2 Flow Rate FiO2 02/22/20 06:00 97.9 101 18 139/82 (101) 98 Room Air 02/19/20 12:29 2.0 I&O- Last 24 Hours up to 6 AM 02/23/20 06:00 Intake Total 2020 ml Balance 2020 ml Microbiology Microbiology 02/19/20 Blood Culture - Preliminary, Resulted No Growth after 72 hours. All specime... 02/19/20 Blood Culture - Preliminary, Resulted No Growth after 72 hours. All specime... 02/19/20 Urine Culture - Final, Complete Escherichia Coli 02/19/20 Respiratory Virus Panel (PCR) ([facility]) - Final, Complete Discharge Medications Scheduled Calcium Carb/Vitamin D3/Vit K1 (Citracal Soft Chew) 1 Each Tab.chew, 2 EACH PO DAILY, (Reported) Duloxetine HCl (Duloxetine HCl) 40 Mg Capsule.dr, 80 MG PO BID, (Reported) Ergocalciferol (Vitamin D2) (Vitamin D2) 50,000 Units Cap, 50,000 UNIT PO QWEEK, (Reported) SATURDAYS Omeprazole (Omeprazole) 20 Mg Capsule.dr, 20 MG PO DAILY, (Reported) Primidone (Primidone) 50 Mg Tablet, 200 MG PO BID, (Reported) Risperidone (Risperidone) 2 Mg Tablet, 3 MG PO BID, (Reported) Thyroid,Pork (Step Down Specialist Thyroid) 15 Mg Tablet, 15 MG PO DAILY, (Reported) TAKE WITH 30MG TAB FOR TOTAL OF 45MG DAILY Thyroid,Pork (Step Down Specialist Thyroid) 30 Mg Tablet, 30 MG PO DAILY, (Reported) TAKE WITH 15MG TAB FOR TOTAL DOSE OF 45MG DAILY Trazodone HCl (Trazodone HCl) 50 Mg Tablet, 150 MG PO QHS, (Reported) levoFLOXacin (levoFLOXacin) 750 Mg Tablet, 750 MG PO DAILY Scheduled PRN Acetaminophen (Tylenol Extra Strength) 500 Mg Tablet, 1,000 MG PO Q6H PRN for PAIN, (Reported) Albuterol Sulfate (Proair Hfa) 8.5 Gm Hfa.aer.ad, 2 PUFF INH Q4-6HP PRN for shortness of breath, wheezing Clonazepam (Clonazepam) 1 Mg Tablet, 1 MG PO TID PRN for ANXIETY, (Reported) MAY TAKE TWO TABS IF NEEDED Allergies Coded Allergies: No Known Allergies (Unverified , 09/15/17) ESTEFANY LORD DO Feb 23, 2020 23:50
== END 2020-02-22 15:25 | disposition home or self-care (01) | DRG 689 ==
LOC: M ED 06:33 → M ED INP 09:49 → M MS5PR 12:50
PROVIDERS: ADMIT General Practice; ATTEND Internal Medicine
DX: N10 Acute pyelonephritis (principal); J18.9 Pneumonia, unspecified organism; G93.41 Metabolic encephalopathy; Z68.36 Body mass index [BMI] 36.0-36.9, adult; F41.9 Anxiety disorder, unspecified; F32.9 Major depressive disorder, single episode, unspecified; G43.909 Migraine, unspecified, not intractable, without status migrainosus; B96.20 Unspecified Escherichia coli [E. coli] as the cause of diseases classified elsewhere; R25.1 Tremor, unspecified; I10 Essential (primary) hypertension; E66.9 Obesity, unspecified; Z98.84 Bariatric surgery status; Z79.899 Other long term (current) drug therapy

== ENCOUNTER → 2020-07-04 | Outpatient (REF) | payer OTHER ==
[~2020-07-04] MED LIST changes: +ACET-897 PO; +LEVO750T14 PO; +PROAAER10 INH; +TRAZ-252 PO
[2020-07-04 12:28] LABS: APPEARANCE, URINE CLEAR (CLEAR); BACTERIA, URINE AUTO 1+ (NEGATIVE); BILIRUBIN, URINE AUTO NEGATIVE (NEGATIVE); BLOOD, URINE BLOOD NEGATIVE (NEGATIVE); COLOR, URINE COLORLESS (YELLOW); GLUCOSE, URINE (UA) AUTO NEGATIVE (NEGATIVE); KETONE, URINE AUTO NEGATIVE (NEGATIVE); LEUKOCYTE ESTERASE, URINE AUTO NEGATIVE (NEGATIVE); NITRITE, URINE AUTO NEGATIVE (NEGATIVE); PROTEIN, URINE AUTO NEGATIVE (NEGATIVE); RBC, URINE AUTO 0 /HPF (0-3); SPECIFIC GRAVITY URINE AUTO 1.003 (1.002-1.035); SQUAMOUS EPITHELIAL CELL UR AU 1 /HPF (0-6); UROBILINOGEN, URINE AUTO 0.2 mg/dL (0.0-2.0); WBC, URINE AUTO 0 /HPF (0-3)
== END ==
LOC: M LAB REF 11:18
PROVIDERS: ATTEND Physician Assistant
DX: R30.0 Dysuria (principal); R35.0 Frequency of micturition

== ENCOUNTER → 2020-07-14 | Outpatient (REF) | payer OTHER ==
[2020-07-14 10:58] LABS: APPEARANCE, URINE CLEAR (CLEAR); BACTERIA, URINE AUTO NEGATIVE (NEGATIVE); BILIRUBIN, URINE AUTO NEGATIVE (NEGATIVE); BLOOD, URINE BLOOD NEGATIVE (NEGATIVE); COLOR, URINE STRAW (YELLOW); GLUCOSE, URINE (UA) AUTO NEGATIVE (NEGATIVE); KETONE, URINE AUTO NEGATIVE (NEGATIVE); LEUKOCYTE ESTERASE, URINE AUTO TRACE (NEGATIVE); NITRITE, URINE AUTO NEGATIVE (NEGATIVE); PROTEIN, URINE AUTO NEGATIVE (NEGATIVE); RBC, URINE AUTO 0 /HPF (0-3); SPECIFIC GRAVITY URINE AUTO 1.001 (1.002-1.035); SQUAMOUS EPITHELIAL CELL UR AU 0 /HPF (0-6); UROBILINOGEN, URINE AUTO 0.2 mg/dL (0.0-2.0); WBC, URINE AUTO 3 /HPF (0-3)
== END ==
LOC: M LAB REF 10:33
PROVIDERS: ATTEND Physician Assistant
DX: N39.0 Urinary tract infection, site not specified (principal)

== ENCOUNTER → 2020-08-02 | Outpatient (REF) | payer OTHER ==
[~2020-08-02] MED LIST changes: +ERGO500029 PO; -VITA50005 PO
[2020-08-02 17:06] LABS: APPEARANCE, URINE CLEAR (CLEAR); BACTERIA, URINE AUTO NEGATIVE (NEGATIVE); BILIRUBIN, URINE AUTO NEGATIVE (NEGATIVE); BLOOD, URINE BLOOD 2+ (NEGATIVE); COLOR, URINE STRAW (YELLOW); GLUCOSE, URINE (UA) AUTO NEGATIVE (NEGATIVE); KETONE, URINE AUTO NEGATIVE (NEGATIVE); LEUKOCYTE ESTERASE, URINE AUTO 2+ (NEGATIVE); NITRITE, URINE AUTO NEGATIVE (NEGATIVE); PROTEIN, URINE AUTO NEGATIVE (NEGATIVE); RBC, URINE AUTO 1 /HPF (0-3); SPECIFIC GRAVITY URINE AUTO 1.002 (1.002-1.035); SQUAMOUS EPITHELIAL CELL UR AU 0 /HPF (0-6); UROBILINOGEN, URINE AUTO 0.2 mg/dL (0.0-2.0); WBC, URINE AUTO 12 /HPF (0-3)
== END ==
LOC: M LAB REF 15:35
PROVIDERS: ATTEND Physician Assistant
DX: R30.0 Dysuria (principal)

== ENCOUNTER → 2020-08-25 | Outpatient (REF) | payer OTHER ==
[2020-08-25 14:29] LABS: APPEARANCE, URINE HAZY (CLEAR); BACTERIA, URINE AUTO 1+ (NEGATIVE); BILIRUBIN, URINE AUTO NEGATIVE (NEGATIVE); BLOOD, URINE BLOOD NEGATIVE (NEGATIVE); COLOR, URINE STRAW (YELLOW); GLUCOSE, URINE (UA) AUTO NEGATIVE (NEGATIVE); KETONE, URINE AUTO NEGATIVE (NEGATIVE); LEUKOCYTE ESTERASE, URINE AUTO 3+ (NEGATIVE); NITRITE, URINE AUTO NEGATIVE (NEGATIVE); PROTEIN, URINE AUTO NEGATIVE (NEGATIVE); RBC, URINE AUTO 4 /HPF (0-3); SPECIFIC GRAVITY URINE AUTO 1.002 (1.002-1.035); SQUAMOUS EPITHELIAL CELL UR AU 0 /HPF (0-6); UROBILINOGEN, URINE AUTO 0.2 mg/dL (0.0-2.0); WBC, URINE AUTO 62 /HPF (0-3)
== END ==
LOC: M LAB REF 14:02
PROVIDERS: ATTEND Physician Assistant
DX: N39.0 Urinary tract infection, site not specified (principal)

== ENCOUNTER → 2021-01-09 | Outpatient (REF) | payer OTHER ==
[~2021-01-09] MED LIST changes: -CYMB60CA3 PO; +CYMB60CA4 PO; +OMEP-173 PO; -OMEP-218 PO
== END ==
LOC: M LAB REF 17:30
PROVIDERS: ATTEND Physician Assistant
DX: R30.0 Dysuria (principal)

== ENCOUNTER → 2021-01-12 | Outpatient (REF) | payer OTHER ==
[2021-01-12 17:37] LABS: BACTERIA, URINE AUTO NEGATIVE (NEGATIVE); RBC, URINE AUTO 0 /HPF (0-3); SQUAMOUS EPITHELIAL CELL UR AU 1 /HPF (0-6); WBC, URINE AUTO 0 /HPF (0-3)
== END ==
LOC: M SMT 16:56
PROVIDERS: ATTEND Specialist
DX: N39.0 Urinary tract infection, site not specified (principal)
CPT/HCPCS: 51798; 81015; 87086; G0463

== ENCOUNTER → 2021-04-23 | Outpatient (CLI) | payer OTHER ==
[~2021-04-23] MED LIST changes: +DILT120C89 PO; +DILT1CAP5 PO; +DULO1CAP5 PO; +METH-855 PO; +OXYB10TA23 PO
== END ==
LOC: M LABSMTC 11:30
PROVIDERS: ATTEND Anesthesiology
DX: Z01.812 Encounter for preprocedural laboratory examination (principal); Z20.822 Contact with and (suspected) exposure to COVID-19

== ENCOUNTER 2021-04-27 06:24 | Day surgery (SDC) | payer OTHER ==
[~2021-04-27] VITALS: Ht 157.5 cm; Wt 58.0 kg
[~2021-04-27 06:24] MED LIST changes: +NS 1,000 ML IV ONE
[2021-04-27] MEDS ORDERED: LIDOCAINE 2% 100MG/5ML SDV (FOR ANES.) As Ordered ONE (06:49)
[2021-04-27] MEDS ORDERED: propofoL 200 MG/20 ML VIAL As Ordered ONE ×3 (06:49→08:22)
[2021-04-27] MEDS ORDERED: ePHEDrine SULFATE 25 MG/5 ML(5MG/ML) SYRINGE As Ordered ONE (07:55)
[2021-04-27 08:55] VITALS: BP 103/56
== END 2021-04-27 09:05 | disposition home or self-care (01) ==
LOC: M OPP 06:24
PROVIDERS: ATTEND Surgery
DX: Z12.11 Encounter for screening for malignant neoplasm of colon (principal); F41.9 Anxiety disorder, unspecified; Z86.73 Personal history of transient ischemic attack (TIA), and cerebral infarction without residual deficits; Z87.891 Personal history of nicotine dependence; Z98.84 Bariatric surgery status; Z79.899 Other long term (current) drug therapy

== ENCOUNTER → 2021-06-18 | Outpatient (CLI) | payer OTHER ==
[~2021-06-18] MED LIST changes: -NS 1,000 ML IV ONE
[2021-06-18 17:11] LABS: BASO % 0.8 % (0.0-1.0); EOS # 0.1 10^3/uL (0.0-0.5); EOS % 1.7 % (0.0-3.0); HEMATOCRIT 36.4 % (36.0-47.0); HEMOGLOBIN 11.8 g/dl (12.0-15.5); LYMPH % 27.9 % (24.0-44.0); MEAN CORPUSCULAR HGB CONC 32.4 g/dl (32.0-36.5); MEAN CORPUSCULAR VOLUME 86.5 fl (80.0-96.0); MONO # 0.4 10^3/uL (0.0-0.8); MONO % 11.6 % (2.0-8.0); NEUTROPHILS # 2.1 10^3/uL (1.5-8.5); NEUTROPHILS % 57.4 % (36.0-66.0); PLATELET COUNT, AUTOMATED 232 10^3/uL (150-450); RED BLOOD COUNT 4.21 10^6/uL (4.00-5.40); WHITE BLOOD COUNT 3.6 10^3/uL (4.0-10.0)
[2021-06-18 17:37] LABS: ALBUMIN 4.1 GM/DL (3.2-5.2); ALT/SGPT 43 U/L (12-78); BILIRUBIN,TOTAL 0.3 MG/DL (0.2-1.0); BLOOD UREA NITROGEN 16 MG/DL (7-18); CALCIUM LEVEL 9.7 MG/DL (8.5-10.1); CARBON DIOXIDE LEVEL 26 MEQ/L (21-32); CHLORIDE LEVEL 103 MEQ/L (98-107); CHOLESTEROL LEVEL 179 MG/DL (<200); CHOLESTEROL RISK RATIO 2.057 (<5); CREATININE FOR GFR 0.83 MG/DL (0.55-1.30); GLOMERULAR FILTRATION RATE > 60.0 (>51); GLUCOSE, FASTING 108 MG/DL (70-100); HDL CHOLESTEROL 87 MG/DL (>40); IRON (FE) 106 UG/DL (50-170); LDL CHOLESTEROL 77 MG/DL (<100); NON-HDL-C 92 MG/DL; PERCENT SATURATION 26.8 % (13.2-45.0); POTASSIUM SERUM 4.5 MEQ/L (3.5-5.1); SODIUM LEVEL 133 MEQ/L (136-145); TOTAL IRON BINDING CAPACITY 395 UG/DL (250-450); TOTAL PROTEIN 6.5 GM/DL (6.4-8.2); TRIGLYCERIDES LEVEL 77 MG/DL (<150)
[2021-06-18 17:38] LABS: VITAMIN B12 LEVEL 589 PG/ML
== END ==
LOC: M PLALAB 14:18
PROVIDERS: ATTEND Nurse Practitioner Adult Health
DX: E03.9 Hypothyroidism, unspecified (principal); Z98.84 Bariatric surgery status

== ENCOUNTER → 2021-08-22 | Outpatient (CLI) | payer OTHER | LOC: M WHC 13:17 | PROVIDERS: ATTEND Family Medicine | DX: Z12.31 Encounter for screening mammogram for malignant neoplasm of breast (principal); Z13.820 Encounter for screening for osteoporosis; Z78.0 Asymptomatic menopausal state; Z80.3 Family history of malignant neoplasm of breast ==

== ENCOUNTER → 2021-10-10 | Outpatient (CLI) | payer OTHER | LOC: M PLAIMG 14:24 | PROVIDERS: ATTEND Nurse Practitioner Adult Health | DX: M16.0 Bilateral primary osteoarthritis of hip (principal); M25.551 Pain in right hip; M25.552 Pain in left hip ==

== ENCOUNTER → 2021-11-27 | Outpatient (CLI) | payer OTHER ==
[~2021-11-27] MED LIST changes: -MAXA10TA14 PO; +RIZA10TA64 PO
== END ==
LOC: M PLAIMG 12:05
PROVIDERS: ATTEND Physician Assistant
DX: M16.0 Bilateral primary osteoarthritis of hip (principal); S30.0XXA Contusion of lower back and pelvis, initial encounter; M51.36 Other intervertebral disc degeneration, lumbar region; W18.30XA Fall on same level, unspecified, initial encounter; Y92.009 Unspecified place in unspecified non-institutional (private) residence as the place of occurrence of the external cause

== ENCOUNTER → 2022-04-01 | Outpatient (CLI) | payer OTHER ==
[2022-04-01 15:55] LABS: BASO % 0.7 % (0.0-1.0); EOS # 0.1 10^3/uL (0.0-0.5); HEMATOCRIT 31.6 % (36.0-47.0); HEMOGLOBIN 9.8 g/dl (12.0-15.5); LYMPH # 1.4 10^3/uL (1.5-5.0); LYMPH % 31.2 % (24.0-44.0); MEAN CORPUSCULAR VOLUME 83.8 fl (80.0-96.0); MONO # 0.5 10^3/uL (0.0-0.8); MONO % 10.6 % (2.0-8.0); NEUTROPHILS # 2.4 10^3/uL (1.5-8.5); NEUTROPHILS % 55.3 % (36.0-66.0); PLATELET COUNT, AUTOMATED 203 10^3/uL (150-450); RED BLOOD COUNT 3.77 10^6/uL (4.00-5.40); WHITE BLOOD COUNT 4.4 10^3/uL (4.0-10.0)
[2022-04-01 16:32] LABS: THYROID STIMULATING HORMONE 4.425 uIU/ML (0.55-4.78)
[2022-04-01 16:34] LABS: BLOOD UREA NITROGEN 17 MG/DL (9-23); CALCIUM LEVEL 9.2 MG/DL (8.3-10.6); CARBON DIOXIDE LEVEL 26 MMOL/L (20-31); CHLORIDE LEVEL 103 MMOL/L (98-107); CREATININE FOR GFR 0.63 MG/DL (0.55-1.30); FREE T4 0.87 NG/DL (0.89-1.76); GLOMERULAR FILTRATION RATE > 60.0 (>45); GLUCOSE, FASTING 91 MG/DL (74-106); POTASSIUM SERUM 4.3 MMOL/L (3.5-5.1); SODIUM LEVEL 136 MMOL/L (136-145)
== END ==
LOC: M PLALAB 14:22
PROVIDERS: ATTEND Nurse Practitioner Adult Health
DX: I10 Essential (primary) hypertension (principal); E03.9 Hypothyroidism, unspecified

== ENCOUNTER → 2022-04-10 | Outpatient (CLI) | payer OTHER ==
[2022-04-10 16:08] LABS: PERCENT SATURATION 9.2 % (13.2-45.0)
[2022-04-10 16:11] LABS: FERRITIN 2.7 NG/ML (7.3-270.7); TOTAL 25(OH) VITAMIN D 25.2 NG/ML (20.0-100.0)
[2022-04-10 16:13] LABS: FOLATE 23.8 NG/ML (>5.4)
== END ==
LOC: M PLALAB 13:08
PROVIDERS: ATTEND Family Medicine
DX: D64.9 Anemia, unspecified (principal); Z98.84 Bariatric surgery status

== ENCOUNTER → 2022-09-17 | Outpatient (CLI) | payer OTHER ==
[~2022-09-17] MED LIST changes: -DILT1CAP5 PO; +DILT240C41 PO
== END ==
LOC: M WHC 13:49
PROVIDERS: ATTEND Family Medicine
DX: Z12.31 Encounter for screening mammogram for malignant neoplasm of breast (principal)

== ENCOUNTER → 2022-09-24 | Outpatient (CLI) | payer OTHER ==
[2022-09-24 16:01] LABS: BASO % 0.7 % (0.0-1.0); EOS # 0.1 10^3/uL (0.0-0.5); EOS % 2.5 % (0.0-3.0); HEMATOCRIT 36.3 % (36.0-47.0); HEMOGLOBIN 11.9 g/dl (12.0-15.5); LYMPH # 1.4 10^3/uL (1.5-5.0); LYMPH % 31.4 % (24.0-44.0); MEAN CORPUSCULAR HEMOGLOBIN 30.5 pg (27.0-33.0); MEAN CORPUSCULAR HGB CONC 32.8 g/dl (32.0-36.5); MEAN CORPUSCULAR VOLUME 93.1 fl (80.0-96.0); MONO # 0.4 10^3/uL (0.0-0.8); MONO % 10.1 % (2.0-8.0); NEUTROPHILS # 2.4 10^3/uL (1.5-8.5); NEUTROPHILS % 55.1 % (36.0-66.0); PLATELET COUNT, AUTOMATED 189 10^3/uL (150-450); WHITE BLOOD COUNT 4.4 10^3/uL (4.0-10.0)
[2022-09-24 16:35] LABS: IRON (FE) 158 UG/DL (50-170); PERCENT SATURATION 45.9 % (13.2-45.0); TOTAL IRON BINDING CAPACITY 344 UG/DL (250-425); VITAMIN B12 LEVEL 599 PG/ML (211-911)
[2022-09-24 16:36] LABS: ALKALINE PHOSPHATASE 88 U/L (46-116); ALT/SGPT 26 U/L (7.0-40); AST/SGOT 12 U/L (<34); BILIRUBIN,TOTAL 0.5 MG/DL (0.3-1.2); BLOOD UREA NITROGEN 12 MG/DL (9-23); CALCIUM LEVEL 9.1 MG/DL (8.3-10.6); CARBON DIOXIDE LEVEL 25 MMOL/L (20-31); CHLORIDE LEVEL 106 MMOL/L (98-107); CREATININE FOR GFR 0.68 MG/DL (0.55-1.30); FERRITIN 24.9 NG/ML (7.3-270.7); GLOMERULAR FILTRATION RATE > 60.0 (>45); GLUCOSE, FASTING 86 MG/DL (74-106); MAGNESIUM LEVEL 2.2 MG/DL (1.8-2.4); POTASSIUM SERUM 4.6 MMOL/L (3.5-5.1); SODIUM LEVEL 137 MMOL/L (136-145); THYROID STIMULATING HORMONE 3.051 uIU/ML (0.55-4.78); TOTAL PROTEIN 6.3 G/DL (5.7-8.2)
[2022-09-24 16:37] LABS: FOLLICLE STIMULATING HORMONE 114.7 mIU/ML; LUTEINIZING HORMONE 47.9 mIU/ML; PROLACTIN 12.87 NG/ML
[2022-09-24 16:38] LABS: FOLATE 22.73 NG/ML (>5.4); TOTAL 25(OH) VITAMIN D 20.7 NG/ML (20.0-100.0)
== END ==
LOC: M PLALAB 14:16
PROVIDERS: ATTEND Nurse Practitioner Adult Health
DX: D64.9 Anemia, unspecified (principal); E03.9 Hypothyroidism, unspecified; R26.9 Unspecified abnormalities of gait and mobility; Z98.84 Bariatric surgery status

== ENCOUNTER 2022-10-11 14:20 | Emergency (ER) | payer OTHER ==
[~2022-10-11] VITALS: Ht 154.9 cm; Wt 61.6 kg
[2022-10-11] MEDS ORDERED: ONDANSETRON 4MG 2ML VIAL IV ONE (16:05)
[2022-10-11 16:10] LABS: BASO % 0.8 % (0.0-1.0); EOS % 0.8 % (0.0-3.0); HEMATOCRIT 34.9 % (36.0-47.0); HEMOGLOBIN 11.7 g/dl (12.0-15.5); LYMPH # 1.2 10^3/uL (1.5-5.0); LYMPH % 25.1 % (24.0-44.0); MEAN CORPUSCULAR HEMOGLOBIN 30.5 pg (27.0-33.0); MEAN CORPUSCULAR HGB CONC 33.5 g/dl (32.0-36.5); MEAN CORPUSCULAR VOLUME 90.9 fl (80.0-96.0); MONO # 0.4 10^3/uL (0.0-0.8); MONO % 7.1 % (2.0-8.0); NEUTROPHILS # 3.3 10^3/uL (1.5-8.5); PLATELET COUNT, AUTOMATED 212 10^3/uL (150-450); RED BLOOD COUNT 3.84 10^6/uL (4.00-5.40)
[2022-10-11 16:24] LABS: INR 0.98; PARTIAL THROMBOPLASTIN TIME 24.3 SECONDS (24.8-34.2); PROTHROMBIN TIME 12.7 SECONDS (12.5-14.5)
[2022-10-11 16:38] LABS: ERYTHROCYTE SEDIMENTATION RATE < 1 mm/hr (0-30)
[2022-10-11 16:40] LABS: CPK CREATINE PHOSPHOKINASE 183 U/L (34-145); MB/CK RELATIVE INDEX 1.63 (< OR =4)
[2022-10-11 16:41] LABS: C REACTIVE PROTEIN QUANTITATIV < 0.40 MG/DL (<1.0); RSV AMPLIFICATION NEGATIVE (NEGATIVE)
[2022-10-11 16:43] LABS: VITAMIN B12 LEVEL 590 PG/ML (211-911)
[2022-10-11] MEDS: MORPHINE 2 MG/ML 1ML VIAL IV PRN ×2 (17:19→20:21)
[2022-10-11] MEDS ORDERED: PROHANCE 279.3MG/ML 5ML VIAL As Ordered ONE (18:56)
[2022-10-11] MEDS ORDERED: MORPHINE 4 MG/ML 1ML VIAL IV ONE (21:05)
[2022-10-11] MEDS ORDERED: methylPREDNISolone 125MG 2ML VIAL IV ONE (21:05)
[2022-10-11] MEDS ORDERED: HYDR-3713 PO (22:14)
[2022-10-11] MEDS ORDERED: PRED20TA PO (22:14)
[2022-10-11 22:31] VITALS: BP 165/97
[2022-10-11] MEDS ORDERED: ANEXSIA, NORCO 7.5MG/325MG TABLET(HYDROCODONE/APAP) PO ONE (22:35)
[2022-10-11 22:46] VITALS: TEMP 98.9; O2SAT 99
[2022-10-16 20:08] LABS: COPPER PLASMA 113 ug/dL (80-158); VITAMIN B1 LEVEL WHOLE BLOOD 142.5 nmol/L (66.5-200.0)
== END 2022-10-11 22:56 | disposition home or self-care (01) ==
LOC: M ED 14:20
DX: M50.00 Cervical disc disorder with myelopathy, unspecified cervical region (principal); I10 Essential (primary) hypertension; E78.00 Pure hypercholesterolemia, unspecified; G43.909 Migraine, unspecified, not intractable, without status migrainosus; F41.9 Anxiety disorder, unspecified; F32.A Depression, unspecified; Z79.899 Other long term (current) drug therapy
CPT/HCPCS: 70450; 70553; 71045; 72156; 80047; 82525; 82550; 82553; 82607; 84425; 84484; 85025; 85610; 85652; 85730; 86051; 86140; 86362; 87631; 93005; 93041; 94760; 96365; 96366; 96375; 99285; A9576; J2405; J2930

== ENCOUNTER → 2022-12-04 | Outpatient (CLI) | payer OTHER ==
[~2022-12-04] MED LIST changes: +HYDR-3713 PO; +MECL-209 PO; -MECL1TAB31 PO; +PRED20TA PO
== END ==
LOC: M RAD 16:16
PROVIDERS: ATTEND Physician Assistant Surgical
DX: M54.2 Cervicalgia (principal); M47.812 Spondylosis without myelopathy or radiculopathy, cervical region

== ENCOUNTER → 2023-04-01 | Outpatient (CLI) | payer OTHER ==
[2023-04-01 18:26] LABS: BASO % 0.7 % (0.0-1.0); EOS % 0.4 % (0.0-3.0); HEMATOCRIT 36.6 % (36.0-47.0); HEMOGLOBIN 11.9 g/dl (12.0-15.5); LYMPH # 0.9 10^3/uL (1.5-5.0); LYMPH % 20.4 % (24.0-44.0); MEAN CORPUSCULAR HEMOGLOBIN 31.1 pg (27.0-33.0); MEAN CORPUSCULAR HGB CONC 32.5 g/dl (32.0-36.5); MEAN CORPUSCULAR VOLUME 95.6 fl (80.0-96.0); MONO # 0.4 10^3/uL (0.0-0.8); MONO % 8.1 % (2.0-8.0); NEUTROPHILS # 3.1 10^3/uL (1.5-8.5); NEUTROPHILS % 70.2 % (36.0-66.0); PLATELET COUNT, AUTOMATED 227 10^3/uL (150-450); RED BLOOD COUNT 3.83 10^6/uL (4.00-5.40); WHITE BLOOD COUNT 4.5 10^3/uL (4.0-10.0)
[2023-04-01 18:46] LABS: ALKALINE PHOSPHATASE 71 U/L (46-116); ALT/SGPT 23 U/L (7.0-40); AST/SGOT 18 U/L (<34); BILIRUBIN,TOTAL 0.4 MG/DL (0.3-1.2); BLOOD UREA NITROGEN 13 MG/DL (9-23); CALCIUM LEVEL 9.1 MG/DL (8.3-10.6); CARBON DIOXIDE LEVEL 28 MMOL/L (20-31); CHLORIDE LEVEL 100 MMOL/L (98-107); CHOLESTEROL LEVEL 211 MG/DL (<200); CREATININE FOR GFR 0.69 MG/DL (0.55-1.30); FERRITIN 43.1 NG/ML (7.3-270.7); FOLATE > 24.00 NG/ML (>5.4); FREE T4 0.95 NG/DL (0.89-1.76); GLOMERULAR FILTRATION RATE > 60.0 (>45); GLUCOSE, FASTING 107 MG/DL (74-106); HDL CHOLESTEROL 95.9 MG/DL (>40); IRON (FE) 89 UG/DL (50-170); LDL CHOLESTEROL 94.3 MG/DL (<100); NON-HDL-C 115.1 MG/DL; PERCENT SATURATION 27.5 % (13.2-45.0); POTASSIUM SERUM 4.8 MMOL/L (3.5-5.1); SODIUM LEVEL 133 MMOL/L (136-145); THYROID STIMULATING HORMONE 1.247 uIU/ML (0.55-4.78); TOTAL 25(OH) VITAMIN D 30.4 NG/ML (20.0-100.0); TOTAL IRON BINDING CAPACITY 324 UG/DL (250-425); TOTAL PROTEIN 6.2 G/DL (5.7-8.2); TRIGLYCERIDES LEVEL 104 MG/DL (<150)
[2023-04-01 18:49] LABS: VITAMIN B12 LEVEL > 2000 PG/ML (211-911)
== END ==
LOC: M PLALAB 14:52
PROVIDERS: ATTEND Family Medicine
DX: I10 Essential (primary) hypertension (principal); E03.9 Hypothyroidism, unspecified; D64.9 Anemia, unspecified; Z98.84 Bariatric surgery status

== ENCOUNTER → 2023-04-18 | Outpatient (REF) | payer OTHER ==
[~2023-04-18] MED LIST changes: +RISP-106 PO; -RISP-9 PO
== END ==
LOC: M LAB REF 11:23
PROVIDERS: ATTEND Plastic Surgery Surgery of the Hand
DX: D23.21 Other benign neoplasm of skin of right ear and external auricular canal (principal)

== ENCOUNTER → 2023-12-03 | Outpatient (CLI) | payer OTHER | LOC: M RAD 12:47 | PROVIDERS: ATTEND Orthopaedic Surgery | DX: M54.50 Low back pain, unspecified (principal); M48.061 Spinal stenosis, lumbar region without neurogenic claudication; M47.816 Spondylosis without myelopathy or radiculopathy, lumbar region ==

== ENCOUNTER → 2024-01-23 | Outpatient (CLI) | payer OTHER ==
[~2024-01-23] MED LIST changes: -LEVO750T14 PO; +LEVO75TAB PO
== END ==
LOC: M WHC 13:49
PROVIDERS: ATTEND Nurse Practitioner Adult Health
DX: Z12.31 Encounter for screening mammogram for malignant neoplasm of breast (principal); Z13.820 Encounter for screening for osteoporosis; R92.323 Mammographic fibroglandular density, bilateral breasts; M85.851 Other specified disorders of bone density and structure, right thigh

== ENCOUNTER → 2024-01-23 | Outpatient (CLI) | payer OTHER ==
[2024-01-23 20:06] LABS: BLOOD UREA NITROGEN 17 MG/DL (9-23); CALCIUM LEVEL 9.8 MG/DL (8.3-10.6); CARBON DIOXIDE LEVEL 27 MMOL/L (20-31); CHLORIDE LEVEL 99 MMOL/L (98-107); CREATININE FOR GFR 0.77 MG/DL (0.55-1.30); GLOMERULAR FILTRATION RATE > 60.0 (>45); GLUCOSE, FASTING 86 MG/DL (74-106); SODIUM LEVEL 134 MMOL/L (136-145)
== END ==
LOC: M PLALAB 14:33
PROVIDERS: ATTEND Nurse Practitioner Adult Health
DX: I10 Essential (primary) hypertension (principal)

== ENCOUNTER → 2024-05-14 | Outpatient (CLI) | payer OTHER ==
[2024-05-14 17:35] LABS: BASO % 0.5 % (0.0-1.0); HEMATOCRIT 34.3 % (36.0-47.0); HEMOGLOBIN 11.7 g/dl (12.0-15.5); LYMPH # 1.3 10^3/uL (1.5-5.0); LYMPH % 31.4 % (24.0-44.0); MEAN CORPUSCULAR HEMOGLOBIN 31.7 pg (27.0-33.0); MEAN CORPUSCULAR HGB CONC 34.1 g/dl (32.0-36.5); MONO # 0.4 10^3/uL (0.0-0.8); MONO % 10.6 % (2.0-8.0); NEUTROPHILS # 2.3 10^3/uL (1.5-8.5); PLATELET COUNT, AUTOMATED 165 10^3/uL (150-450); RED BLOOD COUNT 3.69 10^6/uL (4.00-5.40)
[2024-05-14 17:49] LABS: ERYTHROCYTE SEDIMENTATION RATE 2 mm/hr (0-30)
[2024-05-14 17:59] LABS: URIC ACID 2.8 MG/DL (3.1-7.8)
[2024-05-14 18:02] LABS: BLOOD UREA NITROGEN 25 MG/DL (9-23); C REACTIVE PROTEIN QUANTITATIV < 0.50 MG/DL (<1.0); CALCIUM LEVEL 9.4 MG/DL (8.3-10.6); CARBON DIOXIDE LEVEL 28 MMOL/L (20-31); CHLORIDE LEVEL 95 MMOL/L (98-107); CREATININE FOR GFR 0.78 MG/DL (0.55-1.30); GLOMERULAR FILTRATION RATE > 60.0 (>45); GLUCOSE, FASTING 92 MG/DL (74-106); IRON (FE) 83 UG/DL (50-170); PERCENT SATURATION 23.2 % (13.2-45.0); POTASSIUM SERUM 4.5 MMOL/L (3.5-5.1); SODIUM LEVEL 130 MMOL/L (136-145); TOTAL IRON BINDING CAPACITY 358 UG/DL (250-425)
[2024-05-14 18:05] LABS: FREE T4 1.07 NG/DL (0.89-1.76); THYROID STIMULATING HORMONE 4.416 uIU/ML (0.55-4.78)
[2024-05-14 18:06] LABS: FOLATE > 24.0 NG/ML (>5.4); TOTAL 25(OH) VITAMIN D 68.8 NG/ML (20.0-100.0)
[2024-05-14 18:30] LABS: RHEUMATOID FACTOR QUANT < 3.5 IU/ML (<14); VITAMIN B12 LEVEL > 2000 PG/ML (211-911)
[2024-05-18 14:32] LABS: ANA PATTERN Nuclear, Speckled (NEGATIVE); ANA PATTERN 2 Nuclear, Homogeneous; ANA SCREEN, IFA POSITIVE (NEGATIVE); ANA TITER 1:40 titer (<1:40); ANA TITER 2 1:40 titer (NEGATIVE)
[2024-05-19 20:53] LABS: LYME TOTAL ANTIBODY CIA <= 0.90 Index (<=0.90)
== END ==
LOC: M PLALAB 14:02
PROVIDERS: ATTEND Nurse Practitioner Adult Health
DX: M25.50 Pain in unspecified joint (principal); E03.9 Hypothyroidism, unspecified; Z98.84 Bariatric surgery status